=== PATIENT | male | born 1955 | race Caucasian/White ===

== ENCOUNTER 2023-03-03 10:32 | Emergency (ER) | payer MEDICARE, OTHER, SELFPAY ==
--- NOTE | ~2023-03-03 | XR_ITS ---
EXAMINATION: XR wrist RT min 3V DATE: 03/03/2023 10:56 INDICATION: Right wrist pain. Fall. TECHNIQUE: 4 views of right wrist were obtained. COMPARISON: None. FINDINGS: Bone alignment is normal. No fracture. There is mild osteoarthritis of triscaphe joint and first carpometacarpal joint. There is a punctate loose body in the radiocarpal compartment dorsally. IMPRESSION: 1. Mild polyarticular osteoarthritis. Reviewed, dictated and finalized at location A.
[2023-03-03 10:40] VITALS: BP 135/72; PULSE 76; RESP 20; TEMP 36.6; O2SAT 100
--- NOTE | 2023-03-03 11:02 | ED.UPPEXIN ---
HPI - Extremity Injury (Upper) General Chief Complaint: Extremity Injury, Upper Stated Complaint: Fall/Injury R Wrist Time Seen by Provider: 03/03/23 11:02 Source: patient and RN notes reviewed History of Present Illness HPI narrative: Patient is a 67-year-old male who presents to urgent care with complaints of right wrist injury. Patient states he fell down some stairs carrying a box and landing on his right wrist. Patient denies hitting his head or any other injuries from the incident. States that the accident occurred prior to arrival and he has not done anything for his pain. No other acute complaints. No acute distress noted. Patient aware of the plan of care. Some parts of this dictation were generated by voice recognition software and may contain typographical and/or grammatical inaccuracies. Related Data Home Medications Medication Instructions Recorded Confirmed amoxicillin 875 mg tablet 875 mg PO DIRECTED 03/03/23 03/03/23 aspirin 81 mg chewable tablet 81 mg PO DIRECTED 03/03/23 03/03/23 atorvastatin 40 mg tablet 40 mg PO DIRECTED 03/03/23 03/03/23 losartan 25 mg tablet 25 mg PO DIRECTED 03/03/23 03/03/23 Allergies Allergy/AdvReac Type Severity Reaction Status Date / Time No Known Allergies Allergy Verified 03/03/23 10:50 Review of Systems Review of Systems: CONSTITUTIONAL: Denies fever, chills, or sweats. EYES: Denies visual changes, redness, or discharge. ENT: Denies rhinorrhea, congestion, sore throat, or otalgia. CARDIOVASCULAR: Denies chest pain, palpitations, or edema. RESPIRATORY: Denies cough or dyspnea. GASTROINTESTINAL: Denies abdominal pain, nausea, vomiting, or diarrhea. GENITOURINARY: Denies dysuria or hematuria. SKIN: Denies rash or itching. MUSCULOSKELETAL: Reports of right wrist pain and discomfort after fall NEUROLOGIC: Denies headache, numbness, or weakness. All other systems reviewed are negative, except as documented in HPI. PMFSH Comments At the time of my signature, I reviewed and agree with the nursing past medical, surgical, social, and family history. There is no relevant family history pertinent to the patient complaint. Exam Narrative: GENERAL: This is a well-nourished, well-developed patient, in no apparent distress. HEAD: normocephalic, atraumatic. EYES: PERRL. Sclera clear/white. Vision is grossly intact. EARS: External ears normal, NOSE: External nose normal with no obvious nasal discharge, nares without redness, no rhinorrhea. THROAT: Mucous membranes moist NECK: Neck supple, SKIN: warm, intact with no suspicious lesions or rash, good texture and turgor. NEURO: awake, alert, and oriented to person, place and time. There were no obvious focal neurologic abnormalities. EXTREMITIES: Moderate edema/hematoma/ecchymosis noted to the radial aspect of the right wrist with mild tenderness. Full range of motion not tested due to pain. Difficulty on flexion and rotation. Positive strong right radial pulse with capillary refill less than 2 seconds. Course Course Level of Care: Express Care Visit Vital Signs Vital signs: Vital Signs Temperature 97.8 F 03/03/23 10:40 Pulse Rate 76 03/03/23 10:40 Respiratory Rate 20 03/03/23 10:40 Blood Pressure 135/72 03/03/23 10:40 Pulse Oximetry 100 03/03/23 10:40 Oxygen Delivery Room Air 03/03/23 10:40 Temperature 97.8 F 03/03/23 10:40 Pulse Rate 76 03/03/23 10:40 Respiratory Rate 20 03/03/23 10:40 Blood Pressure 135/72 03/03/23 10:40 Pulse Oximetry 100 03/03/23 10:40 Oxygen Delivery Room Air 03/03/23 10:40 Reviewed MDM - Extremity Injury (Upper) MDM Narrative Medical decision making narrative: Reviewed x-ray results with the patient. He is aware that x-ray was negative for fracture deformity. Advised patient to wear the Kvng wrap as needed for comfort and support. Use Tylenol/ibuprofen/ice as needed for pain or discomfort. Avoid any strenuous activity involving pushing/
== END 2023-03-03 11:14 | disposition home or self-care (01) ==
PROVIDERS: Emergency Provider Nurse Practitioner Family; PCP Internal Medicine
DX: S63.501A Unspecified sprain of right wrist, initial encounter (principal); S66.911A Strain of unspecified muscle, fascia and tendon at wrist and hand level, right hand, initial encounter; W10.9XXA Fall (on) (from) unspecified stairs and steps, initial encounter; E78.00 Pure hypercholesterolemia, unspecified; I10 Essential (primary) hypertension; Z85.828 Personal history of other malignant neoplasm of skin
CPT/HCPCS: 73110; 99213; G0463

== ENCOUNTER 2023-10-17 15:00 | Emergency (ER) | payer MEDICARE, OTHER, SELFPAY ==
--- NOTE | ~2023-10-17 | XR_ITS ---
XR ankle RT min 3V 10/17/2023 15:29 INDICATION: Right ankle pain PROCEDURE: 4 views right ankle COMPARISON: No prior studies for comparison. FINDINGS: Fracture, dislocation or subluxation is not identified. There are loose bodies at the media l malleolus. The soft tissues appear within normal limits. No foreign bodies are identified. There i s atherosclerosis. IMPRESSION: 1: NO ACUTE BONE OR JOINT ABNORMALITY IDENTIFIED. Reviewed, dictated and finalized at location B. [facility]
[2023-10-17 15:12] VITALS: BP 152/85; PULSE 74; RESP 20; TEMP 36.9; O2SAT 99
--- NOTE | 2023-10-17 15:18 | ED.LOWEXIN ---
HPI - Extremity Injury (Lower) General Chief Complaint: Extremity Injury, Lower Stated Complaint: Right Foot Injury Time Seen by Provider: 10/17/23 15:32 Source: patient and RN notes reviewed Mode of arrival: ambulatory Limitations: no limitations History of Present Illness HPI Narrative: 68-year-old male presents concern for right ankle pain. He reports he passed out today and then had right ankle pain. He reports pain to the medial and lateral ankle. He reports he can find a comfortable position without pain but when he rotated his ankle or puts weight on it is painful. He or reports he has a history of passing out, doctors have not been Lyla to figure out why. He denies any chest pain, shortness of breath, headache. Related Data Allergies Allergy/AdvReac Type Severity Reaction Status Date / Time No Known Allergies Allergy Verified 03/03/23 10:50 Review of Systems Review of Systems: CONSTITUTIONAL: Denies malaise, chills, sweats, or fever. SKIN: Denies rash or itching, open skin, laceration, abrasion, redness, warmth MUSCULOSKELETAL: Reports right ankle pain NEUROLOGIC: Denies numbness, weakness All systems reviewed & are unremarkable except as noted in HPI and below PMFSH Comments At time of signature, agree with nursing past medical, surgical, social and family history. There is no relevant family history pertinent to the presenting complaint Exam Narrative: GENERAL: Well-appearing, well-nourished, and in no acute distress. HEAD: Normocephalic, atraumatic. EYES: PERRLA, conjunctivae clear NECK: Supple. CHEST: Speaks in full sentences. No respiratory distress. HEART: Regular rate and rhythm. Normal and equal peripheral pulses. EXTREMITIES: Right ankle, foot, digits have grossly normal strength and sensation, gross normal range of motion. No edema or ecchymosis. Normal sensation with sensitivity to light touch and pain. No point tenderness. No open wounds, no skin tenting, no devitalized tissue or atrophy, no trophic changes, no obvious deformity, alignment normal, nearby joints and structures intact. Distal pulses palpable and equal bilaterally, skin warm, dry, pink. Capillary refill less than 3 seconds. SKIN: Warm, dry, no rash. NEURO: Alert and oriented x3. PSYCH: Normal mood and affect Course Course Emergency Course: Patient is aware of diagnosis, understands and agrees to treatment plan. Anticipatory guidance given. Patient agrees to follow-up as directed and is aware of reasons to seek care at the emergency department. Portions of this record may have been created with voice recognition software Level of Care: Express Care Visit Vital Signs Vital signs: Vital Signs Temperature 98.4 F 10/17/23 15:12 Pulse Rate 74 10/17/23 15:12 Respiratory Rate 20 10/17/23 15:12 Blood Pressure 152/85 H 10/17/23 15:12 Pulse Oximetry 99 10/17/23 15:12 Oxygen Delivery Room Air 10/17/23 15:12 Temperature 98.4 F 10/17/23 15:12 Pulse Rate 74 10/17/23 15:12 Respiratory Rate 20 10/17/23 15:12 Blood Pressure 152/85 H 10/17/23 15:12 Pulse Oximetry 99 10/17/23 15:12 Oxygen Delivery Room Air 10/17/23 15:12 Reviewed. MDM - Extremity Injury (Lower) MDM Narrative Medical decision making narrative: Patients injury and pain is consistent with musculoskeletal etiology. No signs of neurological or vascular compromise on exam. Compartments and tissues are soft without signs of compartment syndrome. Pain is felt appropriate for further evaluation on an outpatient basis. Imaging Data My impression: Images reviewed, interpreted by radiologist, agree, see report. Radiologist's impression: XR ankle RT min 3V 10/17/2023 15:29 INDICATION: Right ankle pain PROCEDURE: 4 views right ankle COMPARISON: No prior studies for comparison. FINDINGS: Fracture, dislocation or subluxation is not identified. There are loose bodies at the medial malleolus. The soft tissues appear within no
== END 2023-10-17 15:54 | disposition home or self-care (01) ==
PROVIDERS: Emergency Provider Nurse Practitioner; PCP Internal Medicine
DX: S93.401A Sprain of unspecified ligament of right ankle, initial encounter (principal); S96.911A Strain of unspecified muscle and tendon at ankle and foot level, right foot, initial encounter; X58.XXXA Exposure to other specified factors, initial encounter
CPT/HCPCS: 73610; 99213; G0463

== ENCOUNTER 2025-06-18 08:13 | Emergency (ER) | payer MEDICARE, OTHER, SELFPAY ==
--- NOTE | 2025-06-18 08:15 | ED.GENADULT ---
HPI - General Adult General Chief complaint: Dizziness Stated complaint: vertigo/headache/nausea Time Seen by Provider: 06/18/25 08:22 Source: patient, RN notes reviewed and old records reviewed Mode of arrival: ambulatory Limitations: no limitations History of Present Illness HPI narrative: 69-year-old male with a history of hypertension, high cholesterol, pacemaker presents to the [facility] with complaints of dizziness, headache, nausea without vomiting since Tuesday well weedeating. States he has been drainage drink water but has been vomiting. Denies chest pain, shortness of breath. No numbness or tingling in extremities. Only thing that makes it better is when he lays flat Onset (ago): day(s) (2) Treatments prior to arrival: none Related Data Allergies Allergy/AdvReac Type Severity Reaction Status Date / Time No Known Allergies Allergy Verified 03/03/23 10:50 Review of Systems Review of Systems: All systems reviewed & are unremarkable except as noted in HPI and below Constitutional: Constitutional: Reports as per HPI and Reports headache(s) ENT: Reports system reviewed and no additional complaints, except as documented Cardiovascular: Cardiovascular: Reports no additional cardiovascular complaints, Denies chest pain and Denies dyspnea Respiratory: Respiratory: Reports no additional respiratory complaints, Denies chest congestion, Denies cough and Denies dyspnea Gastrointestinal: Gastrointestinal: Reports as per HPI, Reports nausea and Denies vomiting Musculoskeletal: Musculoskeletal: Reports no additional musculoskeletal complaints Integumentary/Breasts: Skin/Breast: Reports system reviewed and no additional complaints, except as docu Neurologic: Reports as per HPI, Reports dizziness and Reports headache(s) PMFSH Past Medical History Medical History (Updated 06/18/25 @ 08:43 by Kathie Romero APRN) History of high cholesterol History of essential hypertension Pacemaker Comments At the time of my signature, I reviewed and agree with the nursing past medical, surgical, social, and family history. There is no relevant family history pertinent to the patient complaint. Exam Const: General: cooperative, no acute distress, well developed, alert, poor hygiene, uncomfortable and well nourished Nutritional Appearance: well nourished Orientation/consciousness: patient oriented x3 Limitations: no limitations HENMT: Head: normal to inspection Ears: hearing grossly normal bilaterally, external ears normal, TM's normal bilaterally, EAC's normal, mastoids normal and no periauricular adenopathy Mouth: Yes Normal oral and palatal mucosa present, Yes lip normal, Yes tongue normal and Yes moist mucous membranes Throat: posterior oropharynx normal, uvula midline and no uvular edema Eyes: General: appearance normal, both eyes and all related structures Alignment and Position: alignment normal Periorbital: periorbital findings normal Eyelids: eyelids normal Neck: Neck: normal visual inspection, full ROM, no lymphadenopathy and no meningeal signs Chest: Chest palpation & inspection: normal inspection of the chest Resp: Effort & Inspection: normal respiratory effort and able to speak in complete sentences Auscultation: clear to auscultation bilaterally, no crackles, no rales, no rhonchi and no wheezes Cardio: Rate: regular rate GI: GI Palp: No abdominal tenderness Skin: General skin exam: normal color and no rashes or lesions noted Neuro: General: patient oriented x3, No gait normal (needs to hold on to something to walk), moves all extremities, no meningeal signs and no focal motor deficits Cognition (Neuro): normal cognition Speech: normal speech Gait exam (Neuro): gait abnormal and Other gait observations present (used wheelchair) Extrem: General: normal to inspection, full ROM and capillary refill normal Psych: Appearance: grossly normal and well kempt Mental Status: mental status grossly normal Speech and movement: Normal speech and movement present and Clear speech present Affect: normal affect Attitude: cooperative Course Course Level of Care: Express Care Visit Vital Signs Vital signs: Vital Signs Temperature 97.6 F 06/18/25 08:23 Pulse Rate 63 06/18/25 08:23 Respiratory Rate 18 06/18/25 08:23 Blood Pressure 159/92 H 06/18/25 08:23 Pulse Oximetry 99 06/18/25 08:23 Oxygen Delivery Room Air 06/18/25 08:23 Temperature 97.6 F 06/18/25 08:23 Pulse Rate 63 06/18/25 08:23 Respiratory Rate 18 06/18/25 08:23 Blood Pressure 159/92 H 06/18/25 08:23 Pulse Oximetry 99 06/18/25 08:23 Oxygen Delivery Room Air 06/18/25 08:23 Reviewed Transfer Transfered to: [facility] Transportation: Other (Declined EMS, having his friend drive him) Transfer rationale: 69-year-old male with a history of a pacemaker, high blood pressure, high cholesterol with a day and half of dizziness, nausea, headache sending for higher level of care Accepting physician: Dr Sousa, spoke with tobacco primer machine operator Medical Decision Making MDM Narrative Medical decision making narrative: Patient appears uncomfortable in exam room. Patient is nontoxic, blood pressure mildly elevated but otherwise vitals are stable. Patient presents with a day and half of dizziness, nausea, headache. Due to patient's past medical history age and signs and symptoms sending for higher level of care, concern for dehydration versus stroke, bleed Transfer instructions reviewed with patient to go directly to the ER. EMS was offered which patient declined. All questions have been answered, and the patient deny any further questions Some parts of this dictation were generated by voice recognition software and may contain typographical and/or grammatical inaccuracies. Differential Diagnosis Differential Diagnosis: Dehydration, heat injury, stroke, brain bleed, migraine, vertigo Medical Records Medical records reviewed: Yes I reviewed the external patient's medical records. Vital Signs Vital Signs: Vital Signs Temperature 97.6 F 06/18/25 08:23 Pulse Rate 63 06/18/25 08:23 Respiratory Rate 18 06/18/25 08:23 Blood Pressure 159/92 H 06/18/25 08:23 Pulse Oximetry 99 06/18/25 08:23 Oxygen Delivery Room Air 06/18/25 08:23 Temperature 97.6 F 06/18/25 08:23 Pulse Rate 63 06/18/25 08:23 Respiratory Rate 18 06/18/25 08:23 Blood Pressure 159/92 H 06/18/25 08:23 Pulse Oximetry 99 06/18/25 08:23 Oxygen Delivery Room Air 06/18/25 08:23 Reviewed Lab Data Lab results reviewed: Yes I reviewed the patient's lab results. Labs: Reviewed ECG Data EKG #1: Attestation: I personally reviewed and interpreted this ECG as follows: ECG completion date: 06/18/25 ECG completion time: 08:30 Prior ECG tracings: not available for review Interpretation: Sinus rhythm, ventricular rate of 61, NM interval 134, QRS duration 87. No ST elevation or depression noted at this time Critical Care Time Critical Care Time Critical Care Time: No Discharge Plan Discharge Clinical Impression: Dizziness, Headache, Nausea Patient Disposition: Acute Care Hospital Condition: Stable Patient Language: Welsh Follow-up/Referrals: Jerman,Agustín Day MD [Primary Care Provider] -
--- OUTSIDE RECORDS SUMMARY | 2025-06-18 08:15 | XMS_ITS | Encounter Summary ---
Author Organization [facility] Address [address] [facility] [place] [address] Care Team Providers Care Associate Director Of Sales Name Role Phone Cornell Stoll MD Primary Care Provider [phone] [phone] Encounter Details Date Type Department Care Team (Late st Contact Info) Description 09/10/2020 Lab Requisition [facility] [address] [facility], [place] [address] Say Shannon MD [address] [place] [address] Social History Tobacco Use Types Packs/Day Years Used Date Smoking Tobacco: Never Smokeless Tobacco: Never Alcohol Use Standard Drinks/Week Comments No 0 (1 standard drink = 0.6 oz pur e alcohol) Sex and Gender Information Value Date Recorded Sex Assigned at Not on file 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 Answer Date of Assessment Author No 10/30/2018 3:09 PM Elzbieta Singh RN * Is person blind or have serious difficulty seeing? Answer Date of Assessment Author No 10/30/2018 3:09 PM Elzbieta Singh RN * Does person have serious difficulty walking/climbing stairs? Answer Date of Assessment Author No 10/30/2018 3:09 PM Elzbieta Singh RN * Does person have difficulty dressing/bathing? Answer Date of Assessment Author No 10/30/2018 3:09 PM Elzbieta Singh RN * Does person have difficulty doing errands alone? Answer Date of Assessment Author Yes 10/30/2018 3:09 PM Elzbieta Singh RN documented as of this encounter Mental Status * Does person have difficulty concentrating/remembering/making decisions? Answer Entry Date Author No 10/30/2018 3:09 PM Elzbieta Singh RN documented in this encounter Plan of Treatment Not on file documented as of this encounter Procedures Procedure Name Priority Date/Time Associated Diagnosis Comments DERMATOPATHOLOGY Routine 09/09/2020 12:0 0 AM CDT documented in this encounter Results * DERMATOPATHOLOGY (09/09/2020 12:00 AM CDT) Case Report Dermatopathology Report Case: [id number] Authorizing Provider: Say Shannon MD Collected: 09/09/2020 12:00 AM Ordering Location: [facility] Received: 09/10/2020 11:25 AM Pathologist: Elizabeth Kim MD Specimen: Skin, right tricep 0 1:48 PM CDT DERMATOPATHOLOGY LABORATORY Final Diagnosis Specimen A. 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 0 1:48 PM CDT DERMATOPATHOLOGY LABORATORY Gross Description Specimen A: Received is one formalin filled container labeled with the patients name and designated right tricep. The specimen consists of a shave removal measuring [id number]. The margin is inked green. Jar 0. 0 1:48 PM CDT DERMATOPATHOLOGY LABORATORY Microscopic Description Specimen A. SKIN, right tricep: The epidermis is acanthotic and shows full thickness disorderly maturation of keratinocytes, mitoses at different levels, and dyskeratotic cells. There is overlying parakeratosis and hyperkeratosis. This lesion is not present at the sampled margin of the specimen. 0 1:48 PM CDT DERMATOPATHOLOGY LABORATORY Disclaimer An external and internal positive and negative controls are appropriate for the histochemical, immunohistochemical and immunofluorescence stain(s) in this case (if any), except where stated explicitly. The performance characteristics of the stain(s) cited in this report were developed and its performance characteristic determined by the Dermatopathology Laboratory at [facility], directed by Dr. Vin Terrazas. These tests need not be, and therefore are not, approved by the [place] Food and Drug Administration. The tests are used for clinical purposes. Billing Codes Specimen Charges Stain Charges 69598 1 0 1:48 PM CDT DERMATOPATHOLOGY LABORATORY Embedded Images 0 1:48 PM CDT DERMATOPATHOLOGY LABORATORY Pathology/Cytolog y TISSUE SPECIMEN FROM SKIN / Unknown 09/09/2020 09/10/2020 11:25 AM CDT Say Shannon MD LAB - PATHOLOGY/CYTOLOGY ORD ERABLES Final Result DERMATOPATHOLOGY LABORATORY [facility] - Department of Dermatology [facility] Specialized Medicine [address] [place] [address], [address] [phone] documented in this encounter Visit Diagnoses Not on filedocumented in this encounter Care Teams Associate Director Of Sales Relationship Specialty Start Date End Date Cornell Stoll MD [address] [place] [address] PCP - General Internal Medicine 01/09/24 documented as of this encounter
--- OUTSIDE RECORDS SUMMARY | 2025-06-18 08:15 | XMS_ITS | Encounter Summary ---
Author Organization [facility] Address [address] [facility] [place] [address] Care Team Providers Care Corrections Counselor Name Role Phone Cornell Stoll MD Primary Care Provider [phone] [phone] Encounter Details Date Type Department Care Team (Late st Contact Info) Description 08/05/2021 Lab Requisition [facility] [address] 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 SKIN, distal ext Lt FA: SQUAMOUS CELL CARCINOMA, KERATOACANTHOMA TYPE (C44.629) NOT PRESENT AT SAMPLED MARGIN 1 2:02 PM CDT DERMATOPATHOLOGY LABORATORY at 1402 CDT Clinical History R/O SCC, fiore's. Check margins. 1 2:02 PM CDT DERMATOPATHOLOGY LABORATORY Gross Description Specimen A: Received is one formalin filled container labeled with the patients name and designated distal ext Lt FA. The specimen consists of a shave removal measuring [id number]. Jar 0. 1 2:02 PM CDT DERMATOPATHOLOGY LABORATORY Microscopic Description Specimen A. SKIN, distal ext Lt FA: Sections show an endo exophytic crateriform lesion with a keratotic plug, formed by confluent follicle-like structures with relatively large keratinocytes. This lesion is not present at the sampled margin of the specimen. 1 2:02 PM CDT DERMATOPATHOLOGY LABORATORY Disclaimer An external and internal positive and negative controls are appropriate for the histochemical, immunohistochemical and immunofluorescence stain(s) in this case (if any), except where stated explicitly. The performance characteristics of the stain(s) cited in this report were developed and its performance characteristic determined by the Dermatopathology Laboratory at [facility], directed by Dr. Vin Terrazas. These tests need not be, and therefore are not, approved by the [place] Food and Drug Administration. The tests are used for clinical purposes. Billing Codes Specimen Charges Stain Charges 43444 1 1 2:02 PM CDT DERMATOPATHOLOGY LABORATORY Embedded Images 1 2:02 PM CDT DERMATOPATHOLOGY LABORATORY Pathology/Cytolog y TISSUE SPECIMEN FROM SKIN / Unknown 08/04/2021 08/05/2021 12:52 PM CDT Say Shannon MD LAB - PATHOLOGY/CYTOLOGY ORD ERABLES Final Result DERMATOPATHOLOGY LABORATORY [facility] - Department of Dermatology [facility] Specialized Medicine [address] [place] [address], [address] [phone] documented in this encounter Visit Diagnoses Not on filedocumented in this encounter Care Teams Corrections Counselor Relationship Specialty Start Date End Date Cornell Stoll MD [address] [place] [address] PCP - General Internal Medicine 01/09/24 documented as of this encounter
--- OUTSIDE RECORDS SUMMARY | 2025-06-18 08:15 | XMS_ITS | Encounter Summary ---
Author Organization [facility] Address [address] [facility] [place] [address] Care Team Providers Care Installer Technician Name Role Phone Cornell Stoll MD Primary Care Provider [phone] [phone] Encounter Details Date Type Department Care Team (Late st Contact Info) Description 02/25/2022 Lab Requisition [facility] [address] [facility] [place] [id number] Say Shannon MD [address] [place] [address] Social History Tobacco Use Types Packs/Day Years Used Date Smoking Tobacco: Never Smokeless Tobacco: Never Alcohol Use Standard Drinks/Week Comments No 0 (1 standard drink = 0.6 oz pur e alcohol) Sex and Gender Information Value Date Recorded Sex Assigned at Not on file 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 Gender Identity Not on file Sexual Orientation [...] Priority Date/Time Associated Diagnosis Comments DERMATOPATHOLOGY Routine 02/24/2022 12:0 0 AM CDT documented in this encounter Results * DERMATOPATHOLOGY (02/24/2022 12:00 AM CDT) Case Report Dermatopathology Report Case: [id number] Authorizing Provider: Say Shannon MD Collected: 02/24/2022 12:00 AM Ordering Location: [facility] Received: 02/25/2022 01:45 PM Pathologist: Elizabeth Kim MD Specimen: Skin, left dorsal hand proximal edge of middle finger mcp joint 12:55 PM CDT DERMATOPATHOLOGY LABORATORY Final Diagnosis Specimen A. 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 The specimen consists of a shave biopsy measuring [id number]. Jar 0. 12:55 PM CDT DERMATOPATHOLOGY LABORATORY Microscopic Description Specimen A. SKIN, left dorsal hand proximal edge of middle finger mcp joint: Sections show an endophytic crateriform lesion with a keratotic plug, formed by confluent follicle-like structures with relatively large keratinocytes. In addition, there is a separate focus with hyperkeratosis alternating with parakeratosis. There is epidermal hyperplasia with disorderly maturation of keratinocytes with nuclear pleomorphism confined to the lower half of the epidermis. This process extends to the base of the specimen as follicular extension. There are fibroblasts and collagen bundles oriented parallel to the skin surface with elongated blood vessels, some of which are oriented perpendicular to the skin surface. These scar-like changes extend to the base of the specimen. COMMENT: The prior biopsy ([id number]) was reviewed. An underlying process cannot be ruled out. 2 12:55 PM CDT DERMATOPATHOLOGY LABORATORY Disclaimer An external and internal positive and negative controls are appropriate for the histochemical, immunohistochemical and immunofluorescence stain(s) in this case (if any), except where stated explicitly. The performance characteristics of the stain(s) cited in this report were developed and its performance characteristic determined by the Dermatopathology Laboratory at [facility], directed by Dr. Vin Terrazas. These tests need not be, and therefore are not, approved by the [place] Food and Drug Administration. The tests are used for clinical purposes. Billing Codes Specimen Charges Stain Charges 78759 1 2 12:55 PM CDT DERMATOPATHOLOGY LABORATORY Embedded Images 2 12:55 PM CDT DERMATOPATHOLOGY LABORATORY Pathology/Cytolog y TISSUE SPECIMEN FROM SKIN / Unknown 02/24/2022 02/25/2022 1:45 PM CDT Say Shannon MD LAB - PATHOLOGY/CYTOLOGY ORD ERABLES Final Result DERMATOPATHOLOGY LABORATORY [facility] - Department of Dermatology [facility] Medicine [address] [place] [address], [address] [place] [address], [facility] [phone] documented in this encounter Visit Diagnoses Not on filedocumented in this encounter Care Teams Installer Technician Relationship Specialty Start Date End Date Cornell Stoll MD [address] [place] [address] PCP - General Internal Medicine 01/09/24 documented as of this encounter
--- OUTSIDE RECORDS SUMMARY | 2025-06-18 08:15 | XMS_ITS | Clinical Summary ---
Author Organization [facility] Address [address] [place] [address] Care Team Providers Care Coke Oven Patcher Name Role Phone Cornell Stoll MD Primary Care Provider + Cornell Francis MD Unavailable [phone] Allergies No known active allergies Medications aspirin 81 mg chewable tablet Take 1 tablet (81 mg total) by mouth every morning Active ezetimibe (ZETIA) 10 mg tablet Take 1 tablet (10 mg total) by mouth every morning 4 Active ergocalciferol (VITAMIN D) 50,000 unit capsule Take 1 capsule (50,000 Units total) by mouth once a week 4 Active rosuvastatin (CRESTOR) 20 mg tablet Take 1 tablet (20 mg total) by mouth every morning Active cyanocobalamin (Vitamin B-12) 1,000 mcg tabletIndicatio ns:Prevention of Vitamin B12 Deficiency Take 1 tablet (1,000 mcg total) by mouth every morning Active sulfamethoxazol e-trimethoprim (BACTRIM DS) 800-160 mg per tablet Take 1 tablet (160 mg of trimethoprim total) by mouth 2 (two) times a day 14 tablet 5 Active docusate sodium (COLACE) 100 mg capsuleIndicati ons:constipatio n Take 1 capsule (100 mg total) by mouth 2 (two) times a day as needed for constipation 30 capsule 5 Active HYDROcodone-brenda taminophen (NORCO) 5-325 mg per tabletIndicatio ns:Pain Take 1 tablet by mouth every 6 (six) hours as needed for pain 15 tablet 5 Active Active Problems Problem Noted Date Diagnosed Date Malignant neoplasm of prostate 03/05/2025 Abnormal computed tomography of bladder 05/09/20 24 Syncope and collapse 12/05/2023 Encounter for screening colonoscopy 08/16/2023 Lesion of bladder 04/22/2020 Overview (04/22/2020): Added automatically from request for surgery [id number] Enlarged prostate 04/21/2020 Overview (04/21/2020): Added automatically from request for surgery [id number] Elevated PSA 04/21/2020 Overview (04/21/2020): Added automatically from request for surgery [id number] Healthcare maintenance 08/18/2017 Medication management 08/18/2017 Attention deficit disorder (ADD) without hyperac tivity 12/16/2015 Overview (02/25/2017): ADD Hyperlipidemia 12/16/2015 Overview (02/25/2017): Hyperlipidemia Hypogonadism in male 04/06/2014 Overview (02/24/2017): Hypogonadism male Vitamin D deficiency 08/16/2012 Overview (02/24/2017): Vitamin D deficiency Encounters Date Type Department Care Team Description 04/03/2025 8:06 AM CDT Anesthesia Event [facility] [address] [place] [phone] Jun Sprague MD Jarvis, Gary Joseph, CRNA 04/03/2025 7:30 AM CDT - 04/03/2025 12:00 PM CDT Surgery [facility] [address] [place] [phone] Cornell Francis MD Robotic Assisted Radical Prostatectomy, Bilateral Pelvic Lymph Node Dissection, Laparoscopic Urethral Suspension 04/03/2025 5:26 AM CDT - 04/04/2025 3:07 PM CDT Hospital Encounter [address] [place] [address] Cornell Francis MD Malignant neoplasm of prostate (HCC) Discharge Disposition: Discharge to home or self care from Last 3 Months Immunizations Immunization Administration Dates Next Due Influenza, Quadrivalent, Leonor l Culture-based MDCK, Preservative Free, Antibiotic Free, Intramuscular 10/06/2017 Influenza, Quadrivalent, Spl it, Preservative Free, Intradermal 08/17/2016,12/16/2015 Influenza, Split 08/16/2012,08/10/2011, 0 Influenza, Trivalent, Recomb inant, Egg Free, Preservative Free, Antibiotic Free, IM (FLUBLOK) 12/13/2014 Tdap 06/28/2006 Surgical History Surgery Date Site/Laterality Comments CHOLECYSTECTOMY OTHER SURGICAL HISTORY 11/21/2012 - 11/20/2013 fainted at work: [facility] ER Visit03/09/13 VASECTOMY 11/21/1986 - 11/20/1987 BACK SURGERY 02/19/2018 - 03/20/2018 w/ instrumentation for fracture after falling 20ft COLONOSCOPY 07/22/2013 - 08/20/2013 CARDIAC PACEMAKER PLACEMENT 08/27/2024 Medical History Medical History Date Comments Hx Other Medical goiter Hx Other Medical primary hypogon adism Attention deficit disorder ADHD Hx Other Medical diplopia Hx Other Medical 08/[address] Hx Other Medical Squamous Cell C ancer Hx Other Medical Basal Cell canc er Hyperlipidemia Malignant neoplasm of skin 2012 Cance r, skin Fainted 02/27/2013 Hard to intubate 10/28/2018 anterior larynx , small mouth opening, narraow palatte, jagged teeth, overbite KETURAH (obstructive sleep apnea) Depression HLD (hyperlipidemia) Sick sinus syndrome (HCC) Family History Medical History Relation Name Comments Other Brother 2 Alive and well; Coronary artery disease Father Jamie nary artery disease; Hypertension Father Hypertension; Parkinsonism Mother Parkinson's dis ease; Parkinsonism Mother's Brother Parkinson's disease; Parkinsonism Mother's Sister Parkinson's disease; Other Other 1 No family histo ry of Cancer; Other Other 2 No family histo ry of Diabetes mellitus; Other Sister 2 Alive and well; Anesthesia problems Neg Hx Bleeding Disorder Neg Hx Clotting disorder Neg Hx Heart attack Neg Hx Stroke Neg Hx Sudden Cardiac Neg Hx Relation Name Status Comments Brother 1 Alive Brother 2 Father Mother Mother's Brother Mother's Sister Other 1 Other 2 Sister 1 Alive Sister 2 Social History Tobacco Use Types Packs/Day Years Used Date Smoking Tobacco: Never Smokeless Tobacco: Never Tobacco Cessation:Counseling Given: Not Answered Alcohol Use Standard Drinks/Week Comments No 0 (1 standard drink = 0.6 oz pur e alcohol) AUDIT-C Answer Date Recorded Q1: How often do you have a drink containing alcohol? Never 04/03/2025 Q2: How many drinks containi ng alcohol do you have on a typical day when you are drinking? Patient does not drink Q3: How often do you have si x or more drinks on one occasion? Never 04/03/2025 Personal Safety Answer Date Recorded Have you ever been in or are you currently in a harmful physical or emotional relationship or is someone making you feel afraid or unsafe? Denies 04/03/2025 Sex and Gender Information Value Date Recorded Sex Assigned at Not on file Legal Sex Male 4:34 PM MACHINE SET UP Gender Identity Male 10/31/2020 11:25 AM MACHINE SET UP Sexual Orientation Straight 04/18/2020 2: 27 PM CDT Obstetrics History Last Filed Vital Signs Vital Sign Reading Time Taken Comments Blood Pressure 116/89 04/04/2025 12:03 PM CDT Pulse 70 04/04/2025 12:03 PM CDT Temperature 36.9 C (98.4 F) 04/03/2025 8:11 PM CDT Respiratory Rate 18 04/04/2025 12:0 3 PM CDT Oxygen Saturation 100% 04/04/2025 12: 03 PM CDT Inhaled Oxygen Concentration - - Weight 74.3 kg (163 lb 12.8 oz) 04/03/2025 6:25 AM CDT Height 175.3 cm (5' 9) 04/03/2025 6:25 AM CDT Body Mass Index 24.19 04/03/2025 6:25 AM CDT Plan of Treatment Health Maintenance Due Date Last Done Comments Hepatitis B Screening 1971 Pneumococcal vaccine 65+ (1 of 1 - PCV) 2003 Zoster Vaccine (1 of 2) 2003 Osteoporosis Screening-Bone Density Scan 2011 2009 DTaP/Tdap/Td Vaccine (2 - Td or Tdap) 06/28/2016 06/28/2006 Well Visit 65+ 2018 Depression Screening 08/18/2018 08/18/2017 Influenza Vaccine (#1) 2025 , 10/28/2018, 10/06/2017, Additional history exists Prostate Cancer Screening-PSA 10/03/2025, 01/24/2023, 01/24/2023, Additional history exists Fall Risk Assessment 04/04/2026 04/04/2025, 05/09/20 Colon Cancer Screening-Colonoscopy 11/03/2033 11/03/2023, 07/31/2013, 07/31/2013 Hepatitis C Screening Completed 02/02/2017 Abdominal Aortic Aneurysm (A AA) Screen Completed 10/27/2018 Colon Cancer Screening-CT Colonography Discontinued 11/03/2023, 07/31/2013, 07/31/2013 Colon Cancer Screening-DNA Stool Discontinued 11/03/2023, 07/31/2013, 07/31/2013 Colon Cancer Screening-FIT Discontinued 11/03, 07/31/2013, 07/31/2013 Colon Cancer Screening-Sigmoidoscopy Discontinued 11/03/2023, 07/31/2013, 07/31/2013 Medical Devices Implanted Type Area Civil Rights Investigator Device Identifier Shelf Expiration Date Model / Serial / Lot Biotronik Lead Lead Heart Biotronik [id number] / / Biotronik Lead Lead Heart Biotronik [id number] / / Biotronik Edora 8-08/27/2024 Implanted:100 05/2024 (Quantity not on file) Pacemaker Left: Chest [id number] / / L1-L3 Fusion N/A: Spine Lumbar Explanted Type Area Civil Rights Investigator Device Identifier Shelf Expiration Date Model / Serial / Lot Implantable Loop Recorder-2021 Implanted:04/22 by Jesus Lau MD (Quantity not on file) Implantable Loop Recorder N/A: Chest Biotronik BIOMONITOR IIIM / [id number] / Procedures Procedure Name Priority Date/Time Associated Diagnosis Comments EGFR Routine 04/04/2025 1:14 AM CDT HEMOGLOBIN AND HEMATOCRIT Routine 04/04/2025 1:14 AM CDT BASIC METABOLIC PANEL Routine 04/04/2025 1:14 AM CDT SURGICAL PATHOLOGY Routine 04/03/2025 11 :23 AM CDT Malignant neoplasm of prostate (HCC) CO AN PROCEDURE PLACEHOLDER Routine 04/03/2025 8:45 AM CDT CO AN ELECTIVE ENDOTRACHEAL AIRWAY Routine 04/03/2025 8:45 AM CDT XI PROSTATECTOMY - LAPAROSCOPIC ROBOTIC ASSISTED 04/03/2025 8:06 AM CDT Malignant neoplasm of prostate (HCC) B CHECK SAMPLE STAT 04/03/2025 6:18 AM CDT PSA SCREEN Routine 10/03/2024 9:23 AM MACHINE SET UP COLONOSCOPY 11/03/2023 7:54 AM MACHINE SET UP HEPATITIS C SCREENING Routine 02/02/2017 DEXA SCAN Routine 2009 from Last 3 Months or Most Recently Relevant to Health Maintenance Results * eGFR (04/04/2025 1:14 AM CDT) eGFR 80 >=60 mL/min/1. 73 m2 Comment: Interpretive Data Reference Interval Normal >/= 90 mL/min/1.73m2 Mildly decreased* 60 - 89 mL/min/1.73m2 Mildly to moderately decreased 45 - 59 mL/min/1.73m2 Moderately to severely decreased 30 - 44 mL/min/1.73m2 Severely decreased 15 - 29 mL/min/1.73m2 Kidney Failure < 15 mL/min/1.73m2 *Relative to young adult level Estimated glomerular filtration rate is determined by the 2020 CKD-EPI equation recommended by the National Kidney Foundation (A Unifying Approach to GFR Estimation: Recommendations of the NKF-ASK Task Force on Reassessing the Inclusion of Race in Diagnosing Kidney Disease, JASN 2020). The CKD-EPI equation should not be used for patients with unstable renal function and has not been validated in children and those over 70. Current interpretive data was last reviewed 2021. Blood 04/04/2025 1:14 AM CDT 04/04/2025 1:36 AM CDT Cornell Francis MD LAB BLOOD ORDERABLES Fin al Result Performing Organization Address City/[facility]/ZIP Co de Phone Number [facility] [address] [facility] [place] [address] * Hemoglobin and hematocrit (04/04/2025 1:14 AM CDT) Hgb 13.5 13.0 - 17.5 g/dL Hct 39.4 38.9 - 50.3 % [facility] Blood 04/04/2025 1:14 AM CDT 04/04/2025 1:36 AM CDT Cornell Francis MD LAB BLOOD ORDERABLES Fin al Result Performing Organization Address City/[facility] Co de Phone Number [facility] [address] [facility] [place] [address] * (ABNORMAL) Basic metabolic panel (04/04/2025 1:14 AM CDT) Sodium 138 135 - 145 mmol/L Potassium, pl 4.4 3.3 - 4.9 mmol/L [facility] Chloride 106 97 - 110 mmol/L [facility] CO2 21(L) 22 - 32 mmol/L [facility] Anion gap 11 2 - 15 mmol/L [facility] BUN 14 6 - 25 mg/dL [facility] Creatinine 1.01 0.80 - 1.30 mg/dL [facility] Glucose 160 70 - 199 mg/dL [facility] Comment: Interpretive Data Fasting glucose >/= 126 mg/dl is diagnostic for diabetes. Fasting is defined as no caloric intake for at least 8 hours. Fasting glucose between 100 mg/dl to 125 mg/dl is diagnostic of prediabetes. In a patient with classic symptoms of hyperglycemia or hyperglycemic crisis, a random glucose >/= 200 mg/dl is diagnostic for diabetes. In the absence of unequivocal hyperglycemia, results should be confirmed by repeat testing. The classification and Diagnosis of Diabetes Diabetes Care 2021; 46: S19-S40. Current interpretive data was last revised 2022. Calcium 8.1(L) 8.5 - 10.3 mg/dL [facility] Blood 04/04/2025 1:14 AM CDT 04/04/2025 1:36 AM CDT us Cornell Francis MD LAB BLOOD ORDERABLES Fin al Result [facility] [address] Department [place] [address] * Surgical pathology (04/03/2025 11:23 AM CDT) Tissue (Lymph node, dissection/region al resection) 04/03/2025 11:23 AM CDT Comment:Placed in formalin i n lab following procedure Tissue specimen (specimen) (Lymph node, dissection/region al resection) 04/03/2025 11:32 AM CDT Comment:Placed in formalin i n lab following procedure Tissue specimen (specimen) (Prostate, Radical Resection) 04/03/2025 11:53 AM CDT Comment:Placed in formalin i n lab following procedure Narrative [facility] - 04/08/2025 10:10 AM CDT [place] [address] [place], [place] [address] Tele: Camryn Sutherland MD - Commercial Airline Pilot Note to Patients: This report may contain a detailed description of human tissue sent by a health care provider to the laboratory for pathologic evaluation. The content of this report is essential for diagnosis and may provide important critical findings. This information may be unfamiliar to patients to review without a medical professional present. It is advised that the patient review this report in the presence of a health care provider who can answer questions and explain the details. SURGICAL PATHOLOGY REPORT Patient Name: DESTINEY VELASQUEZMargarette Address: [address] [place] [id number] Gender: M : 1955 (Age: 69) Service: Surgery Location: [place] [address], Hospital #: [id number] Patient Type: [facility] IN[place]IENT Taken: 04/03/2025 Received 04/03/2025 Reported: 04/08/2025 Physician(s): Nani Rajput Dr., M.D. DIAGNOSIS: Lymph node, left pelvic, biopsy: - One lymph node with no evidence of malignancy (0/1) Lymph node, right pelvic, dissection: - Three lymph nodes with no evidence of malignancy (0/3) Prostate, prostatectomy: - Adenocarcinoma, Ada grade 3+3=6 (grade group 1) - Adenocarcinoma involves approximately 1-5% of total prostatic tissue - No lymphovascular space invasion - No extraprostatic extension - Resection margins free of tumor - Extensive granulomatous inflammation with necrosis, likely secondary to BCG therapy smo/04/08/2025 10:10 Examining Pathologist: Norman Escobedo M.D. Report Reviewed and Electronically Signed By Norman Escobedo M.D. SPECIMEN TYPE: A: LEFT PELVIC LYMPH NODES B: RIGHT PELVIC LYMPH NODES C: PROSTATE CLINICAL IMPRESSION AND HISTORY: Malignant neoplasm of prostate GROSS DESCRIPTION: A. Received in formalin labeled with DESTINEY VELASQUEZ and left pelvic lymph nodes is a 1 x 0.5 x 0.3 cm yellow-white fatty lymph node. The specimen is entirely submitted in cassette labeled A1. B. Received in formalin labeled with DESTINEY VELASQUEZ and right pelvic lymph nodes are three yellow-white fatty lymph nodes ranging from 0.6 cm to 1.1 cm. The specimen is entirely submitted in cassette labeled B1. C. Received in formalin labeled with DESTINEY VELASQUEZ and Prostate and consists of a 20 gram, 4.3 x 3.2 x 2.6 cm prostate without attached bilateral seminal vesicles and vas deferens. The contents of the container are filtered yielding no additional tissue. The prostate is intact. Specimen is inked as follows: right - yellow, left - green and rectal surface - black. The specimen is sectioned sequentially from apex to base. Sections show white-white vague nodular cut surface. The specimen is entirely submitted sequentially from apex to base as follows: C1 - Radial sections of right distal apical margin, C2 - Radial sections of left distal apical margin, C3 - Radially sectioned right proximal urethral margin, C4 - Sections left proximal urethral margin, C5 - Individual section of right apex, C6-C7 - Contiguous section of right mid, C8-C9 - Contiguous section of right mid, C10-C11 - Contiguous section of right base, C12 - Individual section of right base, C13 - Individual sectioned of left apex, C14-C15 - Contiguous section of left mid, C16-C17 - Contiguous section left mid, C18-C19 - Contiguous section left base [facility] MICROSCOPIC DESCRIPTION: Microscopic examination supports the above captioned diagnosis. Prostate triple stains were performed on blocks C7 and C15 to confirm the diagnosis. Both stains show areas of atypical glands that lack basal cells and overexpress AMACR, consistent with prostate adenocarcinoma. The findings confirm the diagnosis. PROSTATE GLAND: Radical Prostatectomy SPECIMEN Procedure: Radical prostatectomy Prostate Size Prostate Weight (Grams): 20 g Prostate Greatest Dimension (Centimeters): 4.3 cm Additional Prostate Dimension (Centimeters): 3.2 cm Additional Prostate Dimension (Centimeters): 2.6 cm TUMOR Histologic Type: Acinar adenocarcinoma, conventional (usual) Histologic Grade Grade: Grade group 1 (Ada Score 3 + 3 = 6) Intraductal Carcinoma (IDC): Not identified Treatment Effect: No known presurgical therapy TUMOR QUANTITATION Estimated Percentage of Prostate Involved by Tumor: 1 - 5% Extraprostatic Extension (EPE): Not identified Urinary Bladder Neck Invasion: Cannot be determined - Bladder neck not included with the specimen Seminal Vesicle Invasion: No seminal vesicle present Lymphatic and / or Vascular Invasion: Not Identified MARGINS Margin Status: All margins negative for invasive carcinoma REGIONAL LYMPH NODES Regional Lymph Node Status: All regional lymph nodes negative for tumor Number of Lymph Nodes Examined: 4 DISTANT METASTASIS Distant Site(s) Involved: Cannot be determined pTNM CLASSIFICATION (AJCC 8th Edition) Reporting of pT, pN, and (when applicable) pM categories is based on information available to the pathologist at the time the report is issued. As per the AJCC (Chapter 1, 8th Ed.) it is the managing physician's responsibility to establish the final pathologic stage based upon all pertinent information, including but potentially not limited to this pathology report. pT Category: pT2 pN Category: pN0 CAP VERSION: Prostate Gland 4.3.0.0 Clerical Data Follows A; 14519 B; 74798 C; 00514, [address]29 REPORT IMAGES AND/OR SCANNED DOCUMENTS ONLY VIEWABLE IN PDF FORMAT The immunohistochemical test(s) cited in this report, if any, was developed and its performance characteristics determined by [facility]. It has not been cleared or approved by the U.S. Food and Drug Administration. The FDA has determined that such clearance or approval is not necessary. This test is used for clinical purposes. It should not be regarded as investigational or for research. [facility] is certified under the Clinical Laboratory Improvement Amendments of 1988 (CLIA) as qualified to perform high complexity testing. Immunostains were performed on formalin-fixed paraffin embedded tissue using a polymer diaminobenzidine chromogen detection system. Antibodies used may include clone SP1 (rabbit monoclonal, estrogen receptor), clone 1E2 (rabbit monoclonal progesterone receptor), Ki-67 (rabbit monoclonal, 30-9), CD117 (rabbit polyclonal, c-kit), and anti-Her-2/rusty (4B5) (rabbit monoclonal primary antibody). In the event that immunohistochemistry or special stains have been performed, attending physician has confirmed appropriateness of controls. Frozen section, operating room consultation, gross examination and dissection, and case sign out may have been performed in part or completely in the following laboratories: [facility], [address] [place] [address], [address] [place] [address]. Cornell Francis MD LAB PATHOLOGY ORDERABLES Final Result [facility] Laboratory Receiving [address] [place] [address] * CO AN ELECTIVE ENDOTRACHEAL AIRWAY, CO AN PROCEDURE PLACEHOLDER (04/03/2025 8:45 AM CDT) Narrative Kulwant Mancia CRNA - 04/03/2025 8:45 AM CDT Kulwant Mancia CRNA 04/03/2025 11:48 AM Airway Patient location: OR Urgency: elective Date/time: 04/03/2025 8:18 AM Indications for airway management: anesthesia Difficult airway: no Staff: Placed by: PILOT PLANT OPERATOR: Kulwant Mancia CRNA Airway prep: Preoxygenated: yes Patient position: sniffing Mask difficulty assessment: 1 - vent by mask Sedation level during airway: GA Final airway details: Final airway type: endotracheal airway Tube type: ETT ETT size: 8.0 mm Cuffed: yes Technique used for successful ETT placement: video laryngoscopy Insertion site: oral Blade type: Gio Video blade type: Pineda Blade size: 4 Cormack-Lehane (video): grade I - full view of glottis Cuff inflated with: air ETT to lips: 23 cm Placement verified by: auscultation and CO2 detection Airway secured with: silk tape Number of attempts: 1 Additional comments: Known difficult airway. Limited mouth opening and large upper front incisors appreciated. Atraumatic intubation x1 attempt. Lips and teeth in preoperative condition. us Jun Sprague MD ANESTHESIA ORDERA BLES Edited Result - Final * Check Sample (04/03/2025 6:18 AM CDT) ABO Rh A Negative MBC HCLL OTHER 04/03/2025 6:18 AM CDT 04/03/2025 6:31 AM CDT us Cindy Otoole EMPLOYMENT SERVICES DIRECTOR LAB BLOOD ORDERABLES Final Result [facility] [address] Department [place] [address] MBC * (ABNORMAL) PSA screen (10/03/2024 9:23 AM MACHINE SET UP) PSA-Total 20.08(H) <=6.20 ng/mL Comment: Interpretive Data AGE SEX REFERENCE INTERVAL 0 minutes-150 years Female None 0 minutes-49 years Male None 50-59 years Male 0-3.90 60-69 years Male 0-5.40 70-79 years Male 0-6.20 80-150 years Male 0-6.20 The Vanessa PSA Total assay procedure was used. Results from different manufacturers or methods may not be comparable. Serial testing should be performed using the same method. Current interpretive data last revised 22. Blood 10/03/2024 9:23 AM MACHINE SET UP 10/03/2024 9:43 AM MACHINE SET UP Marco A Childs MD LAB BLOOD ORDERABLES Final Result [facility] [address] Department [place] [address] * COLONOSCOPY (11/03/2023 7:54 AM MACHINE SET UP) Anatomical Region Laterality Modality Other Narrative Procedure Note Benita Jay MD - 11/03/2023 7:54 AM CST [facility] Patient Name: Destiney Velasquez Procedure Date: 11/03/2023 7:54 AM Date of : 1955 Admit Type: Outpatient Age: 68 Gender: Male Attending MD: Benita Jay M.D. Room: [facility] ENDOSCOPY ROOM 2 Note Status: Finalized Patient Profile: This is a 68 year old male history of HLD, skincancer here for colon cancer screening. Last [id number] that was normal. No family history of coloncancer. Procedure: Colonoscopy Indications: Screening for colorectal malignant neoplasm, Last colonoscopy: July 2013 Referring MD: Cornell Stoll M.D. Providers: Benita Jay M.D. Impression: - Two 8 to 10 mm polyps in the transverse colon, removed with a cold snare. Resected andretrieved. - One 4 mm polyp in the sigmoid colon, removed witha cold snare. Resected and retrieved. - External and internal hemorrhoids. Recommendation: - Patient has a contact number available for emergencies. The signs and symptoms of potential delayed complications were discussed with thepatient. Return to normal activities tomorrow. Written discharge instructions were provided to thepatient. - Discharge patient to home. - Resume previous diet. - Continue present medications. - Await pathology results. - Repeat colonoscopy in 3 years for surveillancebased on pathology results. - Return to primary care physician as previously scheduled. Medicines: Monitored Anesthesia Care Complications: No immediate complications. Estimated Blood Loss: Estimated blood loss was minimal. Procedure: Pre-Anesthesia Assessment: - Prior to the procedure, a History and Physicalwas performed, and patient medications and allergieswere reviewed. The patient is competent. The risks and benefits of the procedure and the sedation optionsand risks were discussed with the patient. Allquestions were answered and informed consent was obtained. Patient identification and proposed procedure were verified by the physician, the anesthesiologist and the classroom technology technician in the endoscopy suite. MentalStatus Examination: normal. Prophylactic Antibiotics: The patient does not require prophylactic antibiotics. Prior Anticoagulants: The patient has taken no anticoagulant or antiplatelet agents. Afterreviewing the risks and benefits, the patient was deemed in satisfactory condition to undergo the procedure.The anesthesia plan was to use monitored anesthesiacare (MAC). Immediately prior to administration of medications, the patient was re-assessed foradequacy to receive sedatives. The heart rate, respiratory rate, oxygen saturations, blood pressure, adequacyof pulmonary ventilation, and response to care were monitored throughout the procedure. The physical status of the patient was re-assessed after the procedure. The benefits, risks and alternatives of theprocedure and sedation were discussed and informed consentwas obtained. All questions were answered. Please referto the signed informed consent document in the medical record. The bowel preparation used was Miralax and bisacodyl tablets via split dose instruction. The scope was passed under direct vision. The Pediatric Colonoscope PCF-H190L [id number] was introducedthrough the anus and advanced to the the cecum, identifiedby appendiceal orifice and ileocecal valve. The colonoscopy was performed without difficulty. The patient tolerated the procedure well. The qualityof the bowel preparation was excellent. Bowel prep was administered using a split dose. Findings: The perianal and digital rectal examinations were normal. Two Ida classification IIa (superficial, elevated) polyps werefound in the transverse colon. The polyps were 8 to 10 mm in size. These polyps were removed with a cold snare. Resection and retrieval were complete. A 4 mm polyp was found in the sigmoid colon. The polyp was sessile.The polyp was removed with a cold snare. Resection and retrieval were complete. External and internal hemorrhoids were found during retroflexion. Benita Jay M.D. 11/03/2023 9:50:13 AM Number of Addenda: 0 Note Initiated On: 11/03/2023 7:54 AM Procedure Code(s): --- Professional --- 56834, Colonoscopy, flexible; with removal of tumor(s), polyp(s), or other lesion(s) by snare technique --- Technical --- 10471, Colonoscopy, flexible; with removal of tumor(s), polyp(s), or other lesion(s) by snare technique Diagnosis Code(s): --- Professional --- Z12.11, Encounter for screening for malignant neoplasm of colon D12.3, Benign neoplasm of transverse colon (hepatic flexure orsplenic flexure) D12.5, Benign neoplasm of sigmoid colon K64.8, Other hemorrhoids --- Technical --- Z12.11, Encounter for screening for malignant neoplasm of colon D12.3, Benign neoplasm of transverse colon (hepatic flexure orsplenic flexure) D12.5, Benign neoplasm of sigmoid colon K64.8, Other hemorrhoids CPT copyright 2020 [employer]. All rights reserved. The codes documented in this report are preliminary and upon ekg technician reviewmay be revised to meet current compliance requirements. Recognized by the [employer] for promoting quality in endoscopy us Benita Jay MD ENDOSCOPY PROCEDURES Final Resul t * HM HEPATITIS C SCREENING (02/02/2017) HEP C Normal Historical Provider HEALTH MAINTENANCE Final Result * DEXA SCAN (2009) DEXA Scan Abnormal Comment:Osteopenia Historical Provider HEALTH MAINTENANCE Final Result from Last 3 Months or Most Recently Relevant to Health Maintenance Insurance MEDICARE [facility] MEDICARE COMMERCIAL GENERIC Member Subscriber Plan / Payer (Ef fective 2020-Present) Name:Destiney Velasquez Relation to Subscriber:Self Name:Destiney Velasquez Payer ID:[id number] Group ID:Not on file Type:[employer] Address: [address] [place] [address] [place] Member Subscriber Plan / Payer (Ef fective 2020-Present) Name:Destiney Velasquez Relation to Subscriber:Self Name:Destiney Velasquez Payer ID:[id number] Group ID:Not on file Type:[employer] Address: [address] [place] [address] [place] Member Subscriber Plan / Payer (Ef fective 2023-Present) Name:Destiney Velasquez Relation to Subscriber:Self Name:Destiney Velasquez Payer ID:[id number] Group ID:Not on file Type:[employer] Address: [address] [place] [address] [place] [address] Advance Directives For more information, please contact: [phone] * Full Code (Latest Code Status on File) Date Activated Date Inactivated Comments 04/03/2025 3:08 PM 04/04/2025 7:07 PM * Full Code Date Activated Date Inactivated Comments 11/03/2023 8:08 AM 11/03/2023 2:38 PM * Full Code Date Activated Date Inactivated Comments 11/03/2023 8:08 AM 11/03/2023 8:08 AM Care Teams Coke Oven Patcher Relationship Specialty Start Date End Date Cornell Stoll MD [address] [place] [address] PCP - General 02/18/17 [place] [address] [place] [address] [place] [address] Consulting Physician General Surgery 04/04/25
--- OUTSIDE RECORDS SUMMARY | 2025-06-18 08:15 | XMS_ITS | Encounter Summary ---
Author Organization [facility] Address [address] [facility] [place] [address] Care Team Providers Care Agricultural Equipment Sales Engineer Name Role Phone Cornell Stoll MD Primary Care Provider [phone] [phone] Encounter Details Date Type Department Care Team (Late st Contact Info) Description 02/14/2019 Lab Requisition [facility] [address] [facility] [place] [address] Say Shannon MD [address] [place] [address] Social History Tobacco Use Types Packs/Day Years Used Date Smoking Tobacco: Never Smokeless Tobacco: Never Alcohol Use Standard Drinks/Week Comments No 0 (1 standard drink = 0.6 oz pur e alcohol) Sex and Gender Information Value Date Recorded Sex Assigned at Not on file 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 SKIN, above left elbow laterally: DERMAL SCAR (L90.5) RESIDUAL SQUAMOUS CELL CARCINOMA NOT IDENTIFIED 9 1:10 PM CDT DERMATOPATHOLOGY LABORATORY at 1310 CDT Clinical History R/O bx proven SCCIS. Previous Bx: [id number]. Check margins. 9 1:10 PM CDT DERMATOPATHOLOGY LABORATORY Gross Description Specimen A: Received is one formalin filled container labeled with the patient's name and designated above left elbow laterally.The specimen consists of an ellipse measuring [id number] and is oriented with the notch at the 12 o'clock position labeled on the requisition as notch 12 o'clock. The epidermal surface consists of a centrally located 6x6mm previous biopsy site. The 12 to 6 o'clock margin is inked green. The 6 o'clock to 12 o'clock margin is inked black. The 12 o'clock tip is submitted in cassette 1. The 6 o'clock tip is submitted in cassette 2. The remainder of the ellipse is serially sectioned and submitted in cassettes 3-4. Jar 0. 9 1:10 PM CDT DERMATOPATHOLOGY LABORATORY Microscopic Description Specimen A. SKIN, above left elbow laterally: There are fibroblasts and collagen bundles oriented parallel to the skin surface. There are elongated blood vessels, some of which are oriented perpendicular to the skin surface. No residual squamous cell carcinoma is identified. 9 1:10 PM CDT DERMATOPATHOLOGY LABORATORY Disclaimer An external and internal positive and negative controls are appropriate for the histochemical, immunohistochemical and immunofluorescence stain(s) in this case (if any), except where stated explicitly. The performance characteristics of the stain(s) cited in this report were developed and its performance characteristic determined by the Dermatopathology Laboratory at [facility], directed by Dr. Vin Terrazas. These tests need not be, and therefore are not, approved by the [place] Food and Drug Administration. The tests are used for clinical purposes. Billing Codes Specimen Charges Stain Charges 73226 1 9 1:10 PM CDT DERMATOPATHOLOGY LABORATORY Embedded Images 9 1:10 PM CDT DERMATOPATHOLOGY LABORATORY Pathology/Cytolog y TISSUE SPECIMEN FROM SKIN / Unknown 02/13/2019 02/14/2019 11:31 AM CDT Say Shannon MD LAB - PATHOLOGY/CYTOLOGY ORD ERABLES Final Result DERMATOPATHOLOGY LABORATORY [facility] - Department of Dermatology [address] [place] [address] 5th Floor Lab [address] [phone] documented in this encounter Visit Diagnoses Not on filedocumented in this encounter Care Teams Agricultural Equipment Sales Engineer Relationship Specialty Start Date End Date Cornell Stoll MD [address] [place] [address] PCP - General Internal Medicine 01/09/24 documented as of this encounter
--- OUTSIDE RECORDS SUMMARY | 2025-06-18 08:15 | XMS_ITS | Clinical Summary ---
Author Organization [facility] Address [address] [place] [address] Phone Care Team Providers Care Seismograph Shooter Name Role Phone Unavailable Primary Care Provider Unavailabl e Allergies No known active allergies Medications Azelastine HCl 0.15 % NA SOLN 2 Puffs by Nasal route 2 times daily. Each nostril Active fluticasone 50 MCG/ACT NA SUSP 2 Sprays by Nasal route daily. Use in each nostril as directed. Active Calcium 1500 MG PO TABS Take by mouth. Active Ascorbic Acid (VITAMIN C) 1000 MG PO TABS Take by mouth. Active tamsulosin 0.4 MG PO CAPS Take by mouth. Active Atomoxetine HCl (STRATTERA) 80 MG PO CAPS Take by mouth. Active venlafaxine 75 MG PO TABS Take by mouth. Active pravastatin 10 MG PO TABS Take by mouth. Active Wydrs-8-sedc Ethyl Esters (LOVAZA) 1 G PO CAPS Take by mouth. Active mirtazapine 15 MG PO TABS Take by mouth. Active Active Problems Problem Noted Date Diagnosed Date Obsessive compulsive disorder 07/16/2019 Attention-deficit disorder, predominantly hyperactive-impulsive type 07/16/2019 Obstructive sleep apnea Social History Tobacco Use Types Packs/Day Years Used Date Smoking Tobacco: Never Smokeless Tobacco: Never Alcohol Use Standard Drinks/Week Comments Not Currently 0 (1 standard drink = 0.6 oz pur e alcohol) Sexually Active Control Partners Comments Not Currently Sex and Gender Information Value Date Recorded Sex Assigned at Not on file Legal Sex Male 8:32 PM CDT Gender Identity Not on file Sexual Orientation Not on file Plan of Treatment Health Maintenance Due Date Last Done Comments Hepatitis C Virus (HCV) Screening 1955 TdaP Immunization 1955 Cologuard 1998 Colonoscopy 1998 Colorectal Cancer Screening 1998 Immunochemical Fecal Occult Blood 1998 Pneumococcal Immunization (5 0+ years) (1 of 1 - PCV) 2003 Zoster Immunization (1 of 2) 2003 SARS-COV-2 Immunization (4 - season) 2024 09/14/2021, 02/14/2021, 01/16/2021 Influenza Immunization (#1) 07/22/202509/21, 08/17/2016, 12/16/2015 Respiratory Syncytial Virus (RSV) Immunization (Adult) (1 - 1-dose 75+ series) 2028 Hepatitis B Immunization Aged Out No longer eligible based on patient's age to complete this topic Human Papillomavirus (HPV) Immunization Aged Out No longer eligible b ased on patient's age to complete this topic Meningococcal Immunization (ACWY) Aged Out No longer eligible b ased on patient's age to complete this topic Rotavirus Immunization Aged Out No lo nger eligible based on patient's age to complete this topic Insurance MEDICARE COMMERCIAL GENERIC
--- OUTSIDE RECORDS SUMMARY | 2025-06-18 08:15 | XMS_ITS | Encounter Summary ---
Author Organization [facility] Address [address] [facility] [place] [address] Care Team Providers Care Fish And Wildlife Technician Name Role Phone Cornell Stoll MD Primary Care Provider [phone] [phone] Encounter Details Date Type Department Care Team (Late st Contact Info) Description 08/03/2018 Lab Requisition [facility] [address] [facility] [place] [address] Say Shannon MD [address] [place] [address] Social History Tobacco Use Types Packs/Day Years Used Date Smoking Tobacco: Never Assessed Sex and Gender Information Value Date Recorded Sex Assigned at Not on file 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 Gender Identity Not on file Sexual Orientation Not on file documented as of this encounter Plan of Treatment Not on file documented as of this encounter Procedures Procedure Name Priority Date/Time Associated Diagnosis Comments DERMATOPATHOLOGY Routine 08/02/2018 12:0 0 AM CDT documented in this encounter Results * DERMATOPATHOLOGY (08/02/2018 12:00 AM CDT) Case Report Dermatopathology Report Case: [id number] Authorizing Provider: Say Shannon MD Collected: 08/02/2018 12:00 AM Pathologist: Farheen Staples MD Received: 08/03/2018 12:53 PM Specimens: A) - Skin, proximal left radial extensor forearm B) - Skin, proximal left ulnar extensor forearm 3:33 PM T DERMATOPATHOLOGY LABORATORY Final Diagnosis Specimen A. SKIN, proximal left radial extensor forearm: SQUAMOUS CELL CARCINOMA, KERATOACANTHOMA TYPE (C44.629) NOT PRESENT AT SAMPLED MARGIN Specimen B. SKIN, proximal left ulnar extensor forearm: SQUAMOUS PROLIFERATION (D48.5) PRESENT AT MARGIN (see microscopic description and comment) 3:33 PM [facility] DERMATOPATHOLOGY LABORATORY at 1533 CDT Clinical History A: R/O SCC. Check margins. B: R/O BCC. Check margins. 3:33 PM [facility] DERMATOPATHOLOGY LABORATORY Gross Description Specimen A: Received is one formalin filled container labeled with the patients name and designated proximal left radial extensor forearm. The specimen consists of a shave removal measuring [id number], the margin is inked green, bisected. Jar 0. Specimen B: Received is one formalin filled container labeled with the patients name and designated proximal left ulnar extensor forearm. The specimen consists of a shave removal measuring [id number], the margin is inked green, and 5v4x4pw, [id number] submitted in cassette 1. Jar 0. 3:33 PM [facility] DERMATOPATHOLOGY LABORATORY Microscopic Description Specimen A. SKIN, proximal left radial extensor forearm: Sections show an endo exophytic crateriform lesion with a keratotic plug, formed by confluent follicle-like structures with relatively large keratinocytes and neutrophilic abscesses. This lesion is not present at the sampled margin of the specimen. Specimen B. SKIN, proximal left ulnar extensor forearm: Sections show inward epidermal hyperplasia with cystic features and mild maturational disarray of keratinocytes extending throughout the full thickness of the specimen. This lesion is present at the base of the specimen. COMMENT: The histological differential diagnosis includes pseudo epitheliomatous hyperplasia, an irritated, inflamed and cystic benign keratosis, an actinic keratosis with adnexal extension, and squamous cell carcinoma keratoacanthoma type. Clinicopathologic correlation is recommended. 3:33 PM [facility] DERMATOPATHOLOGY LABORATORY Disclaimer An external and internal positive and negative controls are appropriate for the histochemical, immunohistochemical and immunofluorescence stain(s) in this case (if any), except where stated explicitly. The performance characteristics of the stain(s) cited in this report were developed and its performance characteristic determined by the Dermatopathology Laboratory at [facility]. These tests need not be, and therefore are not, approved by the [place] Food and Drug Administration. The tests are used for clinical purposes. Billing Codes Specimen Charges Stain Charges 08503 01640 1 1 8 3:33 PM CDT DERMATOPATHOLOGY LABORATORY Embedded Images 8 3:33 PM CDT DERMATOPATHOLOGY LABORATORY Pathology/Cytology TISSUE SPECIMEN FROM SKIN / Unknown 08/02/2018 08/03/2018 12:53 PM CDT Miscellaneous samples (specimen) TISSUE SPECIMEN FROM SKIN / Unknown 08/02/2018 08/03/2018 12:53 PM CDT Say Shannon MD LAB - PATHOLOGY/CYTOLOGY ORD ERABLES Final Result DERMATOPATHOLOGY LABORATORY [facility] - Department of Dermatology [address] [place] [address] 5th Floor Lab B [address] [phone] documented in this encounter Visit Diagnoses Not on filedocumented in this encounter Care Teams Fish And Wildlife Technician Relationship Specialty Start Date End Date Cornell Stoll MD [address] [place] [address] PCP - General Internal Medicine 01/09/24 documented as of this encounter
--- OUTSIDE RECORDS SUMMARY | 2025-06-18 08:15 | XMS_ITS | Encounter Summary ---
Author Organization [facility] Address [address] [place] [address] Care Team Providers Care Purchase Request Editor Name Role Phone Cornell Stoll MD Primary Care Provider [phone] [phone] Encounter Details Date Type Department Care Team (Late st Contact Info) Description 02/12/2019 [facility] Outpatient Visit EXTERNAL NON-[facility] DEPT Unknown, Provider Social History Tobacco Use Types Packs/Day Years Used Date Smoking Tobacco: Never Smokeless Tobacco: Never Alcohol Use Standard Drinks/Week Comments No 0 (1 standard drink = 0.6 oz pur e alcohol) Sex and Gender Information Value Date Recorded Sex Assigned at Not on file 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
--- OUTSIDE RECORDS SUMMARY | 2025-06-18 08:15 | XMS_ITS | Encounter Summary ---
Author Organization [facility] Address [address] [place] [address] Care Team Providers Care Heading Pinner Name Role Phone Cornell Stoll MD Primary Care Provider +1 [phone] Encounter Details Date Type Department Care Team (Late st Contact Info) Description 03/20/2019 [facility] Outpatient Visit EXTERNAL NON-[facility] DEPT Unknown, Provider Social History Tobacco Use Types Packs/Day Years Used Date Smoking Tobacco: Never Smokeless Tobacco: Never Alcohol Use Standard Drinks/Week Comments No 0 (1 standard drink = 0.6 oz pur e alcohol) Sex and Gender Information Value Date Recorded Sex Assigned at Not on file 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
--- OUTSIDE RECORDS SUMMARY | 2025-06-18 08:15 | XMS_ITS | Encounter Summary ---
Author Organization [facility] Address [address] [place] [address] Care Team Providers Care Income Tax Consultant Name Role Phone Cornell Stoll MD Primary Care Provider [phone] [phone] Encounter Details Date Type Department Care Team (Late st Contact Info) Description 10/23/2021 Lab Requisition [facility] [address] [facility] [place] [address] Say Shannon MD [address] [place] [address] Social History Tobacco Use Types Packs/Day Years Used Date Smoking Tobacco: Never Smokeless Tobacco: Never Alcohol Use Standard Drinks/Week Comments No 0 (1 standard drink = 0.6 oz pur e alcohol) Sex and Gender Information Value Date Recorded Sex Assigned at Not on file Legal Sex Male 5:25 PM ADMINISTRATION DEAN Gender Identity Not on file Sexual Orientation [...] Priority Date/Time Associated Diagnosis Comments DERMATOPATHOLOGY Routine 10/21/2021 12:0 0 AM ADMINISTRATION DEAN documented in this encounter Results * DERMATOPATHOLOGY (10/21/2021 12:00 AM ADMINISTRATION DEAN) Case Report Dermatopathology Report Case: [id number] Authorizing Provider: Say Shannon MD Collected: 10/21/2021 12:00 AM Ordering Location: [facility] DermPath Lab Received: 10/23/2021 01:27 PM Pathologist: Elizabeth Kim MD Specimens: A) - Skin, doral left hand B) - Skin, dorsal left hand proximal to middle MCP joint 4:21 PM [facility] DERMATOPATHOLOGY LABORATORY Final Diagnosis Specimen A. SKIN, doral left hand: HYPERPLASTIC (HYPERTROPHIC) ACTINIC KERATOSIS, INFLAMED (L57.0) (see microscopic description) Specimen B. SKIN, dorsal left hand proximal to middle MCP joint: HYPERPLASTIC (HYPERTROPHIC) ACTINIC KERATOSIS (L57.0) (see microscopic description) 4:21 PM [facility] DERMATOPATHOLOGY LABORATORY at [address] [facility] Clinical History A-B: R/O SCC. 4:21 PM [facility] DERMATOPATHOLOGY LABORATORY Gross Description Specimen A: Received is one formalin filled container labeled with the patient's name and designated doral left hand. The specimen consists of a curettage and desiccation biopsy measuring [id number]. Jar 0. Specimen B: Received is one formalin filled container labeled with the patient's name and designated dorsal left hand proximal to middle MCP joint. The specimen consists of a curettage and desiccation biopsy measuring [id number]. Jar 0. 1 4:21 PM [facility] DERMATOPATHOLOGY LABORATORY Microscopic Description Specimen A. SKIN, doral left hand: There is hyperkeratosis alternating with parakeratosis. There is epidermal hyperplasia with disorderly maturation of keratinocytes with nuclear pleomorphism confined to the lower half of the epidermis. Adnexal extension of the lesion is seen. The lesion is inflamed. Specimen B. SKIN, dorsal left hand proximal to middle MCP joint: There is hyperkeratosis alternating with parakeratosis. There is epidermal hyperplasia with disorderly maturation of keratinocytes with nuclear pleomorphism confined to the lower half of the epidermis. Adnexal extension of the lesion is seen. 4:21 PM [facility] DERMATOPATHOLOGY LABORATORY Disclaimer An external and internal positive and negative controls are appropriate for the histochemical, immunohistochemical and immunofluorescence stain(s) in this case (if any), except where stated explicitly. The performance characteristics of the stain(s) cited in this report were developed and its performance characteristic determined by the Dermatopathology Laboratory at [facility], directed by Dr. Vin Terrazas. These tests need not be, and therefore are not, approved by the [place] Food and Drug Administration. The tests are used for clinical purposes. Billing Codes Specimen Charges Stain Charges 95886 70852 1 1 1 4:21 PM ADMINISTRATION DEAN DERMATOPATHOLOGY LABORATORY Embedded Images 4:21 PM [facility] DERMATOPATHOLOGY LABORATORY Pathology/Cytology TISSUE SPECIMEN FROM SKIN / Unknown 10/21/2021 10/23/2021 1:27 PM ADMINISTRATION DEAN Miscellaneous samples (specimen) TISSUE SPECIMEN FROM SKIN / Unknown 10/21/2021 10/23/2021 1:27 PM ADMINISTRATION DEAN us Say Shannon MD LAB - PATHOLOGY/CYTOLOGY ORD ERABLES Final Result DERMATOPATHOLOGY LABORATORY [facility] - Department of Dermatology [address] [place] [address], [facility] [phone] documented in this encounter Visit Diagnoses Not on filedocumented in this encounter Care Teams Income Tax Consultant Relationship Specialty Start Date End Date Cornell Stoll MD [address] [place] [address] PCP - General Internal Medicine 01/09/24 documented as of this encounter
--- OUTSIDE RECORDS SUMMARY | 2025-06-18 08:15 | XMS_ITS | Encounter Summary ---
Author Organization [facility] Address [address] [facility] [place] [address] Care Team Providers Care Rehabilitation Program Coordinator Name Role Phone Cornell Stoll MD Primary Care Provider [phone] Encounter Details Date Type Department Care Team (Late st Contact Info) Description 01/11/2019 Lab Requisition [facility] [address] [facility], [place] [address] Say Shannon MD [address] [place] [address] Social History Tobacco Use Types Packs/Day Years Used Date Smoking Tobacco: Never Smokeless Tobacco: Never Alcohol Use Standard Drinks/Week Comments No 0 (1 standard drink = 0.6 oz pur e alcohol) Sex and Gender Information Value Date Recorded Sex Assigned at Not on file 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 Sex 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 SKIN, above left elbow laterally: SQUAMOUS CELL CARCINOMA IN SITU; PRESENT AT THE BASE OF THE SPECIMEN (D04.62) (see microscopic description and comment) 9 3:47 PM [facility] DERMATOPATHOLOGY [facility] at [address] [facility] Clinical History R/O SCC. Check margins. 9 3:47 PM [facility]ERMAT[facility] Gross Description Specimen A: Received is one formalin filled container labeled with the patients name and designated above left elbow laterally. The specimen consists of a shave removal measuring 1d8h9pt, the margin is inked green. Jar 0. 9 3:47 PM [facility] DERMATOPATHOLOGY [facility] Microscopic Description Specimen A. SKIN, above left elbow laterally: The epidermis shows parakeratosis and an endophytic lesion with full thickness disorderly maturation of keratinocytes, mitoses at different levels, and dyskeratotic cells. The lesion extends to the base of the biopsy. COMMENT: An invasive squamous cell carcinoma cannot be ruled out. 9 3:47 PM [facility] Disclaimer An external and internal positive and negative controls are appropriate for the histochemical, immunohistochemical and immunofluorescence stain(s) in this case (if any), except where stated explicitly. The performance characteristics of the stain(s) cited in this report were developed and its performance characteristic determined by the Dermatopathology Laboratory at [facility], directed by Dr. Vin Terrazas. These tests need not be, and therefore are not, approved by the [place] Food and Drug Administration. The tests are used for clinical purposes. Billing Codes Specimen Charges Stain Charges 57807 1 9 3:47 PM [facility] Embedded Images 9 3:47 PM [facility] Pathology/Cytolog y TISSUE SPECIMEN FROM SKIN / Unknown 01/10/2019 01/11/2019 12:00 PM SLASHER RUNNER Say Shannon MD LAB - PATHOLOGY/CYTOLOGY ORD ERABLES Final Result Performing Organization Address City/State/[facility] Co de Phone Number DERMATOPATHOLOGY LABORATORY [facility] - Department of Dermatology [address] [place] [address], 5th Floor Lab [address] [phone] documented in this encounter Visit Diagnoses Not on filedocumented in this encounter Care Teams Rehabilitation Program Coordinator Relationship Specialty Start Date End Date Cornell Stoll MD [address] [place] [address] PCP - General Internal Medicine 01/09/24 documented as of this encounter
--- OUTSIDE RECORDS SUMMARY | 2025-06-18 08:15 | XMS_ITS | Encounter Summary ---
Author Organization [facility] Healthcare Address [address] [place] [address] Care Team Providers Care Behavioral Intervention Specialist Name Role Phone Cornell Stoll MD Primary Care Provider + Cornell Francis MD Unavailable Reason for Referral * MRI/CAT/PET Scan (Routine) - Closed Specialty Diagnoses / Procedures Referred By Contac t Referred To Contact Radiology Diagnoses Malignant neoplasm of prostate (HCC) Procedures MRI PELVIS PROSTATE W WO CONTRAST Marco A Childs MD Phone: tel: fax: [address] [address] Referral ID Status Reason Start Date Expiration Date Visits Re quested Visits Authorized [id number] Closed 03/08/2024 04/07/2025 1 1 Encounter Details Date Type Department Care Team (Late st Contact Info) Description 03/08/2024 Community Orders [facility] [place] [address] [place] [address] [place] [address] Malignant neoplasm of prostate (HCC) (Primary Dx) Social History Tobacco Use Types Packs/Day Years Used Date Smoking Tobacco: Former Smokeless Tobacco: Never Alcohol Use Standard Drinks/Week Comments No 0 (1 standard drink = 0.6 oz pur e alcohol) Personal Safety Answer Date Recorded Have you ever been in or are you currently in a harmful physical or emotional relationship or is someone making you feel afraid or unsafe? 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 Findings of acute on chronic prostatitis and benign prostatic hyperplasia. 2. No focal suspicious lesions. Dictated by: Adan Nagel M.D. The radiology attending physician has personally reviewed this study, and had reviewed and/or edited this written report and agrees with it. Electronically signed by: Bruno Cochran M.D. Narrative 04/07/2024 3:38 PM CDT EXAMINATION: MAGNETIC RESONANCE IMAGING OF THE PELVIS WITHOUT AND WITH CONTRAST HISTORY: 68-year-old with elevated PSA TECHNIQUE: MR imaging of the prostate gland was performed with a torso phased array coil at 3T prior to and following administration of intravenous gadolinium. Protocol: Prostate 3T Contrast: Dotarem 16 mL COMPARISON: 04/08/2020 FINDINGS: Prostate volume: 27 cc The prostate transition zone is enlarged with findings of benign prostatic hyperplasia. Again seen is is streaky T2 hypointensity within the peripheral zone, right greater than left. There is hypervascularity within the peripheral zones. The prostate was assessed using the PI-RADS 2 scoring system. No suspicious focal lesions. Unchanged previously described 1.0 cm diffusion restricting, enhancing nodule projecting into the urinary bladder, consistent with sequela of benign prostatic hyperplasia. No enlarged lymph nodes are identified. No suspicious osseous lesions are identified. The bladder is mildly thick walled and trabeculated, compatible with chronic bladder outlet obstruction. There are postsurgical changes of posterior instrumented spinal fusion. Procedure Note Bruno Cochran MD PhD - 04/07/2024 EXAMINATION: MAGNETIC RESONANCE IMAGING OF THE PELVIS WITHOUT AND WITH CONTRAST HISTORY: 68-year-old with elevated PSA TECHNIQUE: MR imaging of the prostate gland was performed with a torso phased array coil at 3T prior to and following administration of intravenous gadolinium. Protocol: Prostate 3T Contrast: Dotarem 16 mL COMPARISON: 04/08/2020 FINDINGS: Prostate volume: 27 cc The prostate transition zone is enlarged with findings of benign prostatic hyperplasia. Again seen is is streaky T2 hypointensity within the peripheral zone, right greater than left. There is hypervascularity within the peripheral zones. The prostate was assessed using the PI-RADS 2 scoring system. No suspicious focal lesions. Unchanged previously described 1.0 cm diffusion restricting, enhancing nodule projecting into the urinary bladder, consistent with sequela of benign prostatic hyperplasia. No enlarged lymph nodes are identified. No suspicious osseous lesions are identified. The bladder is mildly thick walled and trabeculated, compatible with chronic bladder outlet obstruction. There are postsurgical changes of posterior instrumented spinal fusion. IMPRESSION: 1. Findings of acute on chronic prostatitis and benign prostatic hyperplasia. 2. No focal suspicious lesions. Dictated by: Adan Nagel M.D. The radiology attending physician has personally reviewed this study, and had reviewed and/or edited this written report and agrees with it. Electronically signed by: Bruno Cochran M.D. Marco A Childs MD [facility] MRI PROCEDURES F inal Result documented in this encounter Visit Diagnoses Diagnosis Malignant neoplasm of prostate (HCC)- Primary Malignant neoplasm of prostate Malignant neoplasm of prostate (HCC) Malignant neoplasm of prostate documented in this encounter Care Teams Behavioral Intervention Specialist Relationship Specialty Start Date End Date Cornell Stoll MD [address] [place] [address] PCP - General 02/18/17 [place] [address] [place] [address] Consulting Physician General Surgery 04/04/25 documented as of this encounter
--- OUTSIDE RECORDS SUMMARY | 2025-06-18 08:15 | XMS_ITS | Referral Summary ---
Author Organization [facility] Address [address] [place] [address] Care Team Providers Care Heel Shaper Name Role Phone Cornell Stoll MD Primary Care Provider + Cornell Francis MD Unavailable Encounters Date Type Department Care Team Description 04/03/2025 5:26 AM CDT - 04/04/2025 3:07 PM CDT Hospital Encounter [address] [address] Cornell Francis MD Malignant neoplasm of prostate (HCC) Discharge Disposition: Discharge to home or self care 04/03/2025 7:30 AM CDT - 04/03/2025 12:00 PM CDT Surgery [facility] [address] [place] [phone] Cornell Francis MD Robotic Assisted Radical Prostatectomy, Bilateral Pelvic Lymph Node Dissection, Laparoscopic Urethral Suspension 04/03/2025 8:06 AM CDT Anesthesia Event [facility] [address] [place] [phone] Jun Sprague MD Jarvis, Gary Joseph, CRNA from Last 3 Months Allergies No known active allergies Medications aspirin [...] (04/22/2020): Added automatically from request for surgery [id number] Enlarged prostate 04/21/2020 Overview (04/21/2020): Added automatically from request for surgery [id number] Elevated PSA 04/21/2020 Overview (04/21/2020): Added automatically from request for surgery [id number] Healthcare maintenance 08/18/2017 Medication management 08/18/2017 Attention deficit disorder (ADD) without hyperac tivity 12/16/2015 Overview (02/25/2017): ADD Hyperlipidemia 12/16/2015 Overview (02/25/2017): Hyperlipidemia Hypogonadism in male 04/06/2014 Overview (02/24/2017): Hypogonadism male Vitamin D deficiency 08/16/2012 Overview (02/24/2017): Vitamin D deficiency Immunizations Immunization Administration Dates Next Due Influenza, Quadrivalent, Leonor l Culture-based MDCK, Preservative Free, Antibiotic Free, Intramuscular 10/06/2017 Influenza, Quadrivalent, Spl it, Preservative Free, Intradermal 08/17/2016,12/16/2015 Influenza, Split 08/16/2012,08/10/2011, 0 Influenza, Trivalent, Recomb inant, Egg Free, Preservative Free, Antibiotic Free, IM (FLUBLOK) 12/13/2014 Tdap 06/28/2006 Social History Tobacco Use Types Packs/Day Years [...] on file 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 Gender Identity Male 10/31/2020 11:25 AM SPACE CONTROL AGENT Sexual Orientation Straight 04/18/2020 2: 27 PM CDT Last Filed Vital Signs Vital Sign Reading [...] 04/03/2025 6:25 AM CDT Plan of Treatment Not on file Medical Devices Implanted Type Area Catering Truck Operator Device Identifier Shelf Expiration Date Model / Serial / Lot Biotronik Lead Lead Heart Biotronik [id number] / / Biotronik Lead Lead Heart Biotronik [id number] / / Biotronik Edora 8-08/27/2024 Implanted:05/2024 (Quantity not on file) Pacemaker Left: Chest [id number] / / L1-L3 Fusion N/A: Spine Lumbar Explanted Type Area Catering Truck Operator Device Identifier Shelf Expiration Date Model / Serial / Lot Implantable Loop Recorder-2021 Implanted:04/22 by Jesus Lau MD (Quantity not on file) Implantable Loop Recorder N/A: Chest Biotronik BIOMONITOR IIIM / [id number] / Procedures Procedure Name Priority Date/Time Associated Diagnosis Comments EGFR Routine 04/04/2025 1:14 AM CDT HEMOGLOBIN AND HEMATOCRIT Routine 04/04/2025 1:14 AM CDT BASIC METABOLIC PANEL Routine 04/04/2025 1:14 AM CDT SURGICAL PATHOLOGY Routine 04/03/2025 11 :23 AM CDT Malignant neoplasm of prostate (HCC) [place] AN PROCEDURE PLACEHOLDER Routine 04/03/2025 8:45 AM CDT NJ AN ELECTIVE ENDOTRACHEAL AIRWAY Routine 04/03/2025 8:45 AM CDT XI PROSTATECTOMY - LAPAROSCOPIC ROBOTIC ASSISTED 04/03/2025 8:06 AM CDT Malignant neoplasm of prostate (HCC) B CHECK SAMPLE STAT 04/03/2025 6:18 AM CDT PSA SCREEN Routine 10/03/2024 9:23 AM SPACE CONTROL AGENT COLONOSCOPY 11/03/2023 7:54 AM SPACE CONTROL AGENT HEPATITIS C SCREENING Routine 02/02/2017 DEXA SCAN [...] LAB BLOOD ORDERABLES Fin al Result [facility] [address] Department [place] [address] * Hemoglobin and hematocrit (04/04/2025 1:14 AM CDT) Hgb 13.5 13.0 - 17.5 g/dL Hct 39.4 38.9 - 50.3 % [facility] Blood 04/04/2025 1:14 AM CDT 04/04/2025 1:36 AM CDT Cornell Francis MD LAB BLOOD ORDERABLES Fin al Result Performing Organization Address City/[facility]/ZIP Co de Phone Number [facility] [address] [employer] [place] [place] [address] * (ABNORMAL) Basic metabolic panel (04/04/2025 1:14 AM CDT) Sodium 138 135 - 145 mmol/L Potassium, pl 4.4 3.3 - 4.9 mmol/L [facility] Chloride 106 97 - 110 mmol/L [facility] CO2 21(L) 22 - 32 mmol/L [facility] Anion gap 11 2 - 15 mmol/L [facility] BUN 14 6 - 25 mg/dL [facility] Creatinine 1.01 0.80 - 1.30 mg/dL [facility] Glucose 160 70 - 199 mg/dL [facility] Comment: Interpretive Data Fasting glucose >/= 126 [...] 2022. Calcium 8.1(L) 8.5 - 10.3 mg/dL [facility] Blood 04/04/2025 1:14 AM CDT 04/04/2025 1:36 AM CDT Cornell Francis MD LAB BLOOD ORDERABLES Fin al Result Performing Organization Address [facility]/ZIP Co de Phone Number [facility] [address] [place] [address] * Surgical pathology (04/03/2025 11:23 AM CDT) [...] i n lab following procedure Narrative PATHOLOGY [facility] - 04/08/2025 10:10 AM CDT [address] [address] Tele: Camryn Sutherland MD - Telecommunications Switch Technician Note to Patients: This report may contain [...] details. SURGICAL PATHOLOGY REPORT Patient Name: DESTINEY VELASQUEZ Address: [address] [place] [id number] Gender: M : 1955 (Age: 69) Service: Surgery Location: [place] [address], Hospital #: [id number] Patient Type: [facility] INPATIENT Taken: 04/03/2025 Received 04/03/2025 Reported: 04/08/2025 Physician(s): Nani Rajput Dr., M.D. DIAGNOSIS: Lymph node, left pelvic, biopsy: - One lymph node with no evidence of malignancy (0/1) Lymph node, right pelvic, dissection: - Three lymph nodes with no evidence of malignancy (0/3) Prostate, prostatectomy: - Adenocarcinoma, [place] grade 3+3=6 (grade group 1) - Adenocarcinoma involves approximately 1-5% of total prostatic tissue - No lymphovascular space invasion - No extraprostatic extension - Resection margins free of tumor - Extensive granulomatous inflammation with necrosis, likely secondary to BCG therapy 04/08/2025 10:10 Examining Pathologist: Norman Escobedo M.D. Report [...] mid, C18-C19 - Contiguous section left base [facility] MICROSCOPIC DESCRIPTION: Microscopic examination supports the above [...] (usual) Histologic Grade Grade: Grade group 1 ([place] Score 3 + 3 = 6) Intraductal [...] Prostate Gland 4.3.0.0 Clerical Data Follows A; 29202 B; 62166 C; 18477, 37261 REPORT IMAGES AND/OR SCANNED DOCUMENTS ONLY VIEWABLE IN PDF FORMAT The immunohistochemical test(s) cited in this report, if any, was developed and its performance characteristics determined by [facility] Department. It has not been cleared or approved by the U.S. Food and Drug Administration. The FDA has determined that such clearance or approval is not necessary. This test is used for clinical purposes. It should not be regarded as investigational or for research. [facility] is certified under the Clinical Laboratory [...] part or completely in the following laboratories: [facility], [address] [address], [place] [address] [facility], [address], [place] [address]. us Cornell Francis MD LAB PATHOLOGY ORDERABLES Final Result PATHOLOGY [facility] Laboratory Receiving [address] [place], [place] [address] * [place] AN ELECTIVE ENDOTRACHEAL AIRWAY, NJ AN PROCEDURE PLACEHOLDER (04/03/2025 8:45 AM CDT) Narrative Kulwant Mancia CRNA - 04/03/2025 8:45 AM CDT Kulwant Mancia CRNA 04/03/2025 11:48 AM Airway Patient location: OR Urgency: elective Date/time: 04/03/2025 8:18 AM Indications for airway management: anesthesia Difficult airway: no Staff: Placed by: NIGHT GUARD: Kulwant Mancia CRNA Airway prep: Preoxygenated: yes [...] 6:18 AM CDT 04/03/2025 6:31 AM CDT Cindy Otoole NP LAB BLOOD ORDERABLES Final Result Performing Organization Address City/[facility]/ZIP Co de Phone Number [facility] [address] Department [place] [address] MBC * (ABNORMAL) PSA screen (10/03/2024 9:23 AM SPACE CONTROL AGENT) PSA-Total 20.08(H) <=6.20 ng/mL Comment: Interpretive Data [...] last revised 22. Blood 10/03/2024 9:23 AM SPACE CONTROL AGENT 10/03/2024 9:43 AM SPACE CONTROL AGENT Marco A Childs MD LAB BLOOD ORDERABLES Final Result Performing Organization Address City/[facility]/ZIP Co de Phone Number [facility] [address] [facility] Department [place] [address] * COLONOSCOPY (11/03/2023 7:54 AM SPACE CONTROL AGENT) Anatomical Region Laterality Modality Other Narrative Procedure Note Benita Jay MD - 11/03/2023 7:54 AM CST [facility] Patient Name: Destiney Velasquez Procedure Date: 11/03/2023 7:54 AM Date of : 1955 Admit Type: Outpatient Age: 68 Gender: Male Attending MD: Benita Jay M.D. Room: [facility] END[facility]COPY ROOM 2 Note Status: Finalized Patient Profile: This is a 68 year old male history of HLD, skincancer here for colon cancer screening. Last [id number] that was normal. No family history of [...] by the physician, the anesthesiologist and the hardware technician in the endoscopy suite. MentalStatus Examination: [...] under direct vision. The Pediatric Colonoscope PCF-H190L [id number] was introducedthrough the anus and advanced to [...] 7:54 AM Procedure Code(s): --- Professional --- 95813, Colonoscopy, flexible; with removal of tumor(s), polyp(s), or other lesion(s) by snare technique --- Technical --- 83846, Colonoscopy, flexible; with removal of tumor(s), polyp(s), [...] colon K64.8, Other hemorrhoids CPT copyright 2020 [employer] [place] [employer]. All rights reserved. The codes documented in this report are preliminary and upon backwinder reviewmay be revised to meet current compliance requirements. Recognized by the [place] [employer]intestinal [employer] for promoting quality in endoscopy Benita Jay MD ENDOSCOPY PROCEDURES Final Resul t * HEPATITIS C SCREENING (02/02/2017) HEP C Normal Brian Ngo MD HEALTH MAINTENANCE Final Result * DEXA SCAN (2009) DEXA Scan Abnormal Comment:Osteopenia Historical Jeni OLMEDO HEALTH MAINTENANCE Final Result from Last 3 Months or Most Recently Relevant to Health Maintenance Insurance MEDICARE [facility] [employer] GENERIC [facility] MEDICARE Member Subscriber Plan / Payer (Ef fective 2018-Present) Name:Destiney Velasquez Member ID:[id number] Relation to Subscriber:Self Name:Destiney Velasquez Subscriber ID:[id number] Payer ID:[id number] Group ID:Not on file Type:MEDICARE [employer] Address: [facility] [address] [place] [address] [employer] Advance Directives For more information, please contact: [phone] * Full Code (Latest Code Status on File) Date Activated Date Inactivated Comments 04/03/2025 3:08 PM 04/04/2025 7:07 PM * Full Code Date Activated Date Inactivated Comments 11/03/2023 8:08 AM 11/03/2023 2:38 PM * Full Code Date Activated Date Inactivated Comments 11/03/2023 8:08 AM 11/03/2023 8:08 AM Care Teams Heel Shaper Relationship Specialty Start Date End Date Cornell Stoll MD [address] [place] [address] PCP - General 02/18/17 [place] [address] [place] [address] Consulting Physician General Surgery 04/04/25
--- OUTSIDE RECORDS SUMMARY | 2025-06-18 08:16 | XMS_ITS | Clinical Summary ---
Author Organization [facility] Address [address] [place] [address] Care Team Providers Care Supervisor Continuous [employer] Name Role Phone Cornell Stoll MD Primary Care Provider [phone] Source Comments [facility],non-owned Affiliates and Associated Physician Practices is amultiple site organization consisting of ambulatory clinics and hospital sitesin [place], [place], [place] and [place]. This disclosure is being madepursuant to the Care Everywhere program and may not contain all information available regarding this patient. Last updated 18.[facility] Allergies No known active allergies Medications * Be aware that medications may not be up to date on this document. Alwaysverify current medications with the patient. ezetimibe (Zetia) 10 MG tablet Take 1 (one) tablet by mouth once daily 11/28/2023 Active rosuvastatin (Crestor) 20 MG tablet Take 1 (one) tablet by mouth once daily 11/28/2023 Active aspirin (Aspirin) 81 MG chew tablet Take 1 (one) tablet by mouth once daily Active vitamin D, ergocalciferol, (Drisdol) 1.25 MG (68187 UT) capsule Take 1 (one) capsule by mouth every 7 days 11/28/2023 Active Active Problems Problem Noted Date Diagnosed Date Neck pain 10/27/2018 Fall 10/27/2018 Right elbow pain 10/27/2018 Closed wedge compression fracture of second lumb ar vertebra 10/27/2018 Acute midline low back pain without sciatica 05/2018 Immunizations Immunization Administration Dates Next Due INFLUENZA VACCINE, QUADR. (F LUZONE; FLULAVAL; FLUARIX; AFLURIA QUADRIVALENT; 6MO+), 0.5 ML (IIV4) 10/28/2018 Family History Medical History Relation Name Comments Alcohol abuse Brother CAD (Coronary Artery Disease) Father Hypertension Father Parkinson's Disease Mother CAD (Coronary Artery Disease) Sister Cataract Sister Hypertension Sister Relation Name Status Comments Brother Father Mother Sister Social History Tobacco Use Types Packs/Day Years Used Date Smoking Tobacco: Former Cigarettes Q uit: 1975 Smokeless Tobacco: Never Tobacco Cessation:Counseling Given: Not Answered Alcohol Use Standard Drinks/Week Comments Not Currently 0 (1 standard drink = 0.6 oz pur e alcohol) Sex and Gender Information Value Date Recorded Sex Assigned at Not on file Legal Sex Male 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 Gender Identity Not on file Sexual Orientation Not on file Last Filed Vital Signs Vital Sign Reading Time Taken Comments Blood Pressure 132/80 10/08/2024 9:17 AM BRANCH BILLING PAYROLL CLERK Pulse 68 10/08/2024 9:17 AM BRANCH BILLING PAYROLL CLERK Temperature 36.8 C (98.3 F) 10/30/2018 3:25 PM BRANCH BILLING PAYROLL CLERK Respiratory Rate 14 10/08/2024 9:17 AM BRANCH BILLING PAYROLL CLERK Oxygen Saturation 99% 10/08/2024 9:17 AM BRANCH BILLING PAYROLL CLERK Inhaled Oxygen Concentration - - Weight 79.4 kg (175 lb) 10/08/2024 9:17 AM BRANCH BILLING PAYROLL CLERK Height 175.3 cm (5' 9) 10/08/2024 9:17 AM BRANCH BILLING PAYROLL CLERK Body Mass Index 25.84 10/08/2024 9:17 AM BRANCH BILLING PAYROLL CLERK Plan of Treatment Health Maintenance Due Date Last Done Comments COLOGUARD (AGES 45-75) - COLON CA SCREENING 1953 CT COLONOGRAPHY - COLON CA SCREENING 1955 FIT - COLON CA SCREENING 1955 FLEX SIG - COLON CA SCREENING 1955 MEDICARE AWV 12 MONTHS 1953 HEPATITIS C SCREENING 07/10/1971 DTAP/TDAP/TD VACCINES (1 - Tdap) 1972 PNEUMOCOCCAL VACCINE 50+ (1 of 1 - PCV) 2003 ZOSTER VACCINE (1 of 2) 2003 Respiratory Syncytial Virus (RSV) Vaccine Pt: or over 60 yrs (1 - Risk 60-74 years 1-dose series) 2013 AAA SCREENING 2018 COVID-19 VACCINE ( season) 2024 DEPRESSION SCREENING 11/21/2024 INFLUENZA VACCINE (#1) 2025 8, 10/06/2017, 08/17/2016, Additional history exists SCREENING FOR DIABETES 08/24/2027 4, 08/24/2024, 02/10/2024, Additional history exists COLON MONITORING 11/03/2033 11/03/2023 COLONOSCOPY - COLON CA SCREENING 11/03/2033 11/03/2023 Colorectal Cancer Screening 11/03/2033 HEPATITIS B VACCINE Aged Out No longe r eligible based on patient's age to complete this topic HIB VACCINE Aged Out No longer eligi ble based on patient's age to complete this topic HPV VACCINE Aged Out No longer eligi ble based on patient's age to complete this topic MENINGOCOCCAL (Group B) VACCINE SHARED DECISION-MAKING Aged Out No longer eligible based on patient's age to complete this topic MENINGOCOCCAL GROUPS A/C/Y/W VACCINE Aged Out No longer eligible based on patient's age to complete this topic Medical Devices Implanted Type Area Risk Professional Device Identifier Shelf Expiration Date Model / Serial / Lot Graft Bone Grftn Dbm Plif 5x2.5cm - [id number] Implanted:Qty : 1 on 10/28/2018 by Vish Paredes II, MD at [facility] N/A: Spine Lumbar [employer] 03/14/2021 [id number] / [id number] / Solera Set Screw Implanted:Qty : 6 on 10/28/2018 by Vish Paredes II, MD at [facility] N/A: Spine Lumbar [id number] / / 5.5 X 40 Implanted:Qty : 4 on 10/28/2018 by Vish Paredes II, MD at [facility] N/A: Spine Lumbar [id number] / / 6.5 X 50 Implanted:Qty : 2 on 10/28/2018 by Vish Paredes II, MD at [facility] N/A: Spine Lumbar [id number] / / 80 Mm Nish Implanted:Qty : 2 on 10/28/2018 by Vish Paredes II, MD at [facility] N/A: Spine Lumbar [id number] / / 38 Mm Crosslink Implanted:Qty : 1 on 10/28/2018 by Vish Paredes II, MD at [facility] N/A: Spine Lumbar [id number] / / Procedures Procedure Name Priority Date/Time Associated Diagnosis Comments COMPREHENSIVE METABOLIC PANEL STAT 10/27/2018 1:14 PM BRANCH BILLING PAYROLL CLERK from Last 3 Months or Most Recently Relevant to Health Maintenance Results * (ABNORMAL) COMPREHENSIVE METABOLIC PANEL (10/27/2018 1:14 PM BRANCH BILLING PAYROLL CLERK) Glucose 122(H) 74 - 106 mg/dL 10/27/2018 1:37 PM BRANCH BILLING PAYROLL CLERK [facility] Sodium 137 136 - 145 mmol/L 10/27/2018 1:37 PM BRANCH BILLING PAYROLL CLERK [facility] Potassium 4.3 3.5 - 5.1 mmol/L 10/27/2018 1:37 PM BRANCH BILLING PAYROLL CLERK [facility] Chloride 106 98 - 107 mmol/L 10/27/2018 1:37 PM BRANCH BILLING PAYROLL CLERK [facility] CO2 27 22 - 31 mmol/L 10/27/2018 1:37 PM BRANCH BILLING PAYROLL CLERK [facility] Calcium 8.3(L) 8.5 - 10.1 mg/dL 10/27/2018 1:37 PM BRANCH BILLING PAYROLL CLERK [facility] Anion Gap 4(L) 8 - 16 mmol/L 10/27/2018 1:37 PM BRANCH BILLING PAYROLL CLERK [facility] BUN 19 7 - 21 mg/dL 10/27/2018 1:37 PM BRANCH BILLING PAYROLL CLERK [facility] Creatinine 1.00 0.50 - 1.30 mg/dL 10/27/2018 1:37 PM BRANCH BILLING PAYROLL CLERK [facility] Alkaline Phosphatase 53 38 - 126 U/L 10/27/2018 1:37 PM BRANCH BILLING PAYROLL CLERK [facility] ALT 26 13 - 61 U/L 10/27/2018 1:37 PM BRANCH BILLING PAYROLL CLERK [facility] AST 16 5 - 40 U/L 10/27/2018 1:37 PM BRANCH BILLING PAYROLL CLERK [facility] Protein Total 6.6 6.4 - 8.2 gm/dL 10/27/2018 1:37 PM BRANCH BILLING PAYROLL CLERK [facility] Albumin 3.3(L) 3.4 - 5.0 gm/dL 10/27/2018 1:37 PM BRANCH BILLING PAYROLL CLERK [facility] Bilirubin Total 0.5 0.2 - 1.0 mg/dL 10/27/2018 1:37 PM BRANCH BILLING PAYROLL CLERK [facility] eGFR by MDRD >60 >60 mL/min/1.7 3m2 10/27/2018 1:37 PM BRANCH BILLING PAYROLL CLERK [facility] eGFR by MDRD >60 >60 mL/min/1.7 3m2 10/27/2018 1:37 PM BRANCH BILLING PAYROLL CLERK [facility] Blood BLOOD SPECIMEN / Unknown Venipuncture / Unknown 10/27/2018 1:14 PM BRANCH BILLING PAYROLL CLERK 10/27/2018 1:18 PM BRANCH BILLING PAYROLL CLERK us Colby Kim MD LAB - CHEMISTRY ORDERABLES Fin al Result [facility] [address] [place] [address] from Last 3 Months or Most Recently Relevant to Health Maintenance Insurance MEDICARE [facility] [place] [id number] Advance Directives * Full Code (Latest Code Status on File) Date Activated Date Inactivated Comments 10/28/2018 4:49 PM 10/30/2018 6:31 PM * Full Code Date Activated Date Inactivated Comments 10/27/2018 5:21 PM 10/28/2018 4:49 PM Care Teams Supervisor [employer] Relationship Specialty Start Date End Date Cornell Stoll MD [address] [place] [address] PCP - General Internal Medicine 01/09/24
--- OUTSIDE RECORDS SUMMARY | 2025-06-18 08:16 | XMS_ITS | Encounter Summary ---
Author Organization [facility] Healthcare Address [address] [place] [address] Care Team Providers Care Nursing Department Chairperson Name Role Phone Cornell Stoll MD Primary Care Provider + Cornell Francis MD Unavailable [phone] Encounter Details Date Type Department Care Team (Late st Contact Info) Description 04/07/2020 Telephone [facility] [address] [facility] [address] Man Bess, RT Social History Tobacco Use Types Packs/Day Years Used Date Smoking Tobacco: Former Alcohol Use Standard Drinks/Week Comments No 0 (1 standard drink = 0.6 oz pur e alcohol) Sex and Gender Information Value Date Recorded Sex Assigned at Not on file Legal Sex Male 4:34 PM 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
--- OUTSIDE RECORDS SUMMARY | 2025-06-18 08:16 | XMS_ITS | Data Portability ---
Author Organization [facility], Primary Care Office Address [address] [place] [phone] Assessment No assessment recorded. Plan of Treatment Reminders Order Date Submit Date Provider Last Modified By Organization Details Last Modified Time Details Appointments None recorded. Lab None recorded. Referral None recorded. Procedures staple removal (PROC) 2022 023 [facility] Main Office, [address] [place] [address], [phone], 3 05:01:23 simple repair of superficial wounds of scalp, neck, axillae, external genitalia, trunk and/or extremities (including hands or feet) (PROC) 2022 023 [facility] Main Office, [address] [place] [address], [phone], 3 23:55:46 Surgeries None recorded. Imaging None recorded. Medication Orders Bactrim DS 800 mg-160 mg tablet 2022 023 [id number], [address], [place], [place], [id number], 3 18:35:16 Patient TargetsNo targets recorded. Patient Instructions Encounter Date Encounter Id Patient Instructions Last Modified By Organization Details Last Modified Time 04/08/2023 [id number] skin stitch aftercare instructions [email or web address] Not available 04/23/2023 22:52:47 Reason for Referral None Reported. Procedures Surgical History Date Name Laterality Status Provider Name and Address Organization Details Recorded Time 11/21/[address] NP, [address] [place] [address], [phone], [facility] 04/23/2023 22:20:54 11/21/19 [address] Surgery completed [address] NP, [address] [place], [address], [facility] 04/23/2023 22:20:15 11/21/18 98 Gallbladder Surgery completed Lizzy Way NP, [address] [place], [address], [employer] [facility] 04/23/2023 22:20:39 11/21/18 [address] NP, [address] [place], [address], [facility] 04/23/2023 22:20:00 Imaging Results None recorded. Procedure Notes None recorded. Medical Equipment None Reported. Medications Name Sig Start Date Stop Date Status Note LastModified by Organization Details LastModified Time atorvastatin 40 mg tablet active Not Available Not Available Not Available venlafaxine ER 75 mg capsule,extend ed release 24 hr TAKE 1 CAPSULE BY MOUTH EVERY MORNING active Not Available Not Available No t Available sulfamethoxazo le 800 mg-trimethopri m 160 mg tablet TAKE 1 TABLET BY MOUTH EVERY 12 HOURS FOR 7 DAYS active Not Available Not Available No t Available amoxicillin 875 mg tablet TAKE 1 TABLET BY MOUTH TWICE DAILY UNTIL ALL TAKEN active Not Available Not Available No t Available losartan 25 mg tablet TAKE 1 TABLET BY MOUTH EVERY DAY FOR HIGH BLOOD PRESSURE active Not Available Not Available No t Available aspirin 81 mg chewable tablet CHEW AND SWALLOW 1 TABLET BY MOUTH EVERY DAY active Not Available Not Available No t Available fluoxetine 20 mg capsule TAKE 2 CAPSULES BY MOUTH EVERY DAY DIRECTED active Not Available Not Available No t Available ezetimibe 10 mg tablet TAKE 1 TABLET BY MOUTH AT NIGHT active Not Available Not Available No t Available atomoxetine 80 mg capsule TAKE 1 CAPSULE BY MOUTH EVERY MORNING active Not Available Not Available No t Available Vitals Date Recorded Heart rate Respiratory rate Body temperature Oxygen saturation Oxygen saturation in Arterial blood by Pulse oximetry Systolic And Diastolic Provider Name and Address Organization Details Last Updated DateTime 3 76 /min 20 /min 98.9 [degF] 95 % 95 % 140/75 mm[Hg] Lizzy Way NP, [address] [place], [address], [facility] 3 22:18:39 Date Recorded Heart rate Respiratory rate Body temperature Oxygen saturation Oxygen saturation in Arterial blood by Pulse oximetry Systolic And Diastolic Provider Name and Address Organization Details Last Updated DateTime 3 80 /min 20 /min 98.2 [degF] 98 % 98 % 130/80 mm[Hg] Lizzy Way NP, [address] [place], [address], [facility] 3 00:00:02 Social History None recorded. Functional Status None recorded. Mental Status None recorded. Family History Relationship Description Onset Age of this Age Resolved Age Notes LastModified by Organization Details LastModified Time Father No current problems or disability [email or web address] Not available 04/23 22:19:25 Mother No current problems or disability [email or web address] Not available 04/23 22:19:25 Medical History Condition Response Coronary Artery Disease N Other N Gout N Blood Diseases N Kidney Stones N Hyperthyroidism N Blood Transfusion N Breast Cancer N Lung Disease N COPD N Depression Y Hypothyroidism N Defects or Inherited Disease N Developmental or Behavioral Disorders N Breast Problem N Difficulty Swallowing N Anesthesia Complications N Meniere's disease N Anxiety Disorder N Muscle, Joint, or Bone Problems N Obesity N Vision or Eye Problems N Arthritis N Polyps N Infertility N Mental Disorder N Cancer Y Stroke N Varicosities N Endometriosis N Bladder or Kidney Problems N High Cholesterol Y Liver Disease N Fibromyalgia N Headaches N Kidney Disease N Allergies/Hayfever N Heart Problems N Ear or Hearing Problems N Hospitalizations N Thyroid Problems N GI Problems N ADD/ADHD N Eating Disorder N Skin Problems N Anemia N MRSA exposure N Constipation N Mental Illness N Diabetes N Ovarian Cancer N Bedwetting N Seizures/Epilepsy N Tuberculosis N AIDS/HIV N Congestive Heart Failure (CHF) N Eczema N Abuse/Domestic Violence N Diverticulitis N Asthma N Reflux/GERD N Hepatitis N Heart Disease N Pulmonary Embolism N Chronic Ear Infections N Pre-Eclampsia N Hypertension N Chicken Pox N Autism Spectrum Disorder (ASD) N Osteoporosis N Thrombophilias N Past Encounters Encounter ID Performer Location Encounter Start Date Encounter Closed Date Diagnosis/Indication Diagnosis SNOMED-CT Code Diagnosis ICD10 Code Diagnosis Note [id number] Ellen Beal MD Main Office [address] [place] [address] 04/08/2023 16:56:53 04/23/2023 22:51:06 Injury of head 22568716 S09.90XA Open wound [id number] T14 .8XXA Cut of scalp 862823781 S 01.01XA Active or passive immunization [id number] Z23 [id number] Ellen Beal MD Main Office [address] [place] [address] 04/23/2023 13:40:19 04/24/2023 00:02:51 Cut of scalp 724574066 S01.01XA Health Concerns Section Related Observation LastModified by Organization Detai ls LastModified Time None Recorded Concern Status LastModified by Organization Details LastModified Time None Recorded Advance Directives Directive None Recorded Payers Insurance Date Sequence Insurance Name Policy Number Policy [place] Covered Member ID [place] Member ID Guarantor Name 04/24/2023 1 [place] Francois [id number] James Francois 04/23/2023 2 [place] [id number] James Francois 04/23/2023 1 [place] Franc[place] [id number] James Francois
[2025-06-18 08:23] VITALS: BP 159/92; PULSE 63; RESP 18; TEMP 36.4; O2SAT 99
--- NOTE | 2025-06-18 08:26 | ECG_ITS ---
Test Date: 2025-06-18 08:30:31 Measurements Intervals [place] Rate: 61 P: 40 IN: 134 QRS: 28 QRSD: 87 T: 58 QT: 407 QTc: 410 Interpretive Statements SINUS RHYTHM No previous ECG available for comparison Electronically Signed On 06-18-2025 17:24:36 CDT by Bar Kaur D.O
== END 2025-06-18 08:55 | disposition short-term general hospital (02) ==
PROVIDERS: Emergency Provider Nurse Practitioner; PCP Internal Medicine
DX: R42 Dizziness and giddiness (principal); R51.9 Headache, unspecified; R11.0 Nausea; I10 Essential (primary) hypertension
CPT/HCPCS: 93005; 99213; G0463

== ENCOUNTER 2025-10-11 12:58 | Outpatient (CLI) | payer MEDICARE, OTHER, SELFPAY ==
--- NOTE | ~2025-10-11 | PE_ITS ---
EXAMINATION: PET_PETPSMAST_PT DATE: 10/11/2025 14:59 INDICATION: Prostate cancer TECHNIQUE: 4.41 mCi of Illucix Ga-68([id number]) was administered i.v. Low dose computed tomography (CT) images were acquired from the base of the brain to the base of the brain to the proximal thighs for attenuation correction and anatomic localization. Positron emission tomography (PET) images were acquired in the same distribution beginning 66 minutes after injection. Images including fused PET/CT images were reconstructed in axial, coronal, and sagittal planes. Automated exposure control technique was employed. The dose-length product was 98770.00mGy-cm. COMPARISON: None FINDINGS: Head/neck: Typical pattern of symmetric physiologic increased activity in the lacrimal, parotid and submandibular glands as well as along the mucosa of the nasal and oral cavities, pharynx and hypopharynx. No pathologically enlarged cervical lymphadenopathy or suspicious foci of increased uptake in the visualized head or neck. Chest: Mild dependent atelectasis in both lungs. No suspicious pulmonary nodules, pneumonia, pulmonary edema or pleural effusion. Heart size is normal. No pericardial effusion. Dual-lead cardiac pacemaker with and one lead tip at the inferior cavoatrial junction and the second lead tip at the pulmonary outflow tract. Thoracic aorta is normal in caliber. No pathologically enlarged or PSMA avid thoracic lymphadenopathy. Abdomen/pelvis/proximal thighs: Physiologic renal accumulation and excretion of activity in the kidneys, bladder and along portions of ureters. Photopenic defect associated with a 2.5 cm low- attenuation left parapelvic cyst. Status post prostatectomy. Caudal to the bladder there is a subcentimeter focus of increased uptake with maximal SUV of 32.5 along the course of the urethra and favor urine activity over residual disease. Additional tiny focus of likely urinary activity with maximal SUV of 7.1 at the urethral meatus. Moderate-sized fat-containing left inguinal hernia. Normal degree and slightly heterogenous pattern of increased uptake throughout the liver and spleen without radiologic correlate or dominant PSMA avid lesion. Cholecystectomy clips at the gallbladder fossa. The pancreas and bilateral adrenal glands are normal. Moderate uptake scattered throughout the bowels with typical duodenal and proximal jejunal predominance and without radiologic correlate, also likely physiologic. Normal appendix. No other abnormal foci of increased uptake or pathologically enlarged lymphadenopathy in the abdomen, pelvis or proximal thighs. Musculoskeletal: L2 compression fracture spanned by an L1-L3 posterior spinal fusion with bilateral vertical aguila and pedicle screw fixation. No suspicious lytic, blastic or abnormally PSMA avid bone lesions. IMPRESSION: 1. Status post prostatectomy with small focus of relatively intense activity centrally in the region of the prostatectomy bed with the location and relative high intensity disproportionate to the size of lesion suggesting this represents excreted urine activity in the urethra with additional small amount of activity more distally at the urethral meatus. No other osseous lesion suspicious for metastatic disease. Reviewed, dictated and finalized at location A. OVEMENT LEAD IMPRESSION: 1. Status post prostatectomy with small focus of relatively intense activity ce ntrally in the region of the prostatectomy bed with the location and relative h igh intensity disproportionate to the size of lesion suggesting this represents excreted urine activity in the urethra with additional small amount of activit y more distally at the urethral meatus. No other osseous lesion suspicious for metastatic disease.
--- OUTSIDE RECORDS SUMMARY | 2025-10-11 13:02 | XMS_ITS | Encounter Summary ---
Author Organization [facility] Address [address] [facility] [place] [address] Care Team Providers Care Pastry Wrapper Name Role Phone Cornell Stoll MD Primary Care Provider [phone] [phone] Encounter Details Date Type Department Care Team (Late st Contact Info) Description 10/23/2021 Lab Requisition [facility] [address] [facility], [place] [id number] Say Shannon MD [address] [place] [address] Social History Tobacco Use Types Packs/Day Years Used Date Smoking Tobacco: Never Smokeless Tobacco: Never Alcohol Use Standard Drinks/Week Comments No 0 (1 standard drink = 0.6 oz pur e alcohol) Sex and Gender Information Value Date Recorded Sex Assigned at Not on file Legal Sex Male 5:25 PM THIOKOL OPERATOR Gender Identity Not on file Sexual Orientation [...] Comments DERMATOPATHOLOGY Routine 10/21/2021 12:0 0 AM THIOKOL OPERATOR documented in this encounter Results * DERMATOPATHOLOGY (10/21/2021 12:00 AM THIOKOL OPERATOR) Case Report Dermatopathology Report Case: [id number] Authorizing Provider: Say Shannon MD Collected: 10/21/2021 12:00 AM Ordering Location: [facility] Lab Received: 10/23/2021 01:27 PM Pathologist: Elizabeth Kim MD Specimens: A) - Skin, doral left hand B) - Skin, dorsal left hand proximal to middle MCP joint 4:21 PM [facility] DERMATOPATHOLOGY LABORATORY Final Diagnosis Specimen A. SKIN, doral left hand: HYPERPLASTIC (HYPERTROPHIC) ACTINIC KERATOSIS, INFLAMED (L57.0) (see microscopic description) Specimen B. SKIN, dorsal left hand proximal to middle MCP joint: HYPERPLASTIC (HYPERTROPHIC) ACTINIC KERATOSIS (L57.0) (see microscopic description) 4:21 PM [facility] DERMATOPATHOLOGY [facility]ORATORY at [address] [facility] Clinical History A-B: R/O SCC. 4:21 PM [facility] DERMATOPATHOLOGY LABORATORY Gross Description Specimen A: Received is one formalin filled container labeled with the patient's name and designated doral left hand. The specimen consists of a curettage and desiccation biopsy measuring [id number]. Jar 0. Specimen B: Received is one formalin filled container labeled with the patient's name and designated dorsal left hand proximal to middle MCP joint. The specimen consists of a curettage and desiccation biopsy measuring [id number]. Jar 0. 1 4:21 PM [facility] DERMATOPATHOLOGY LABORATORY Microscopic Description Specimen [...] of the lesion is seen. 4:21 PM [facility] DERMATOPATHOLOGY [facility]ORATORY Disclaimer An external and internal positive and negative controls are appropriate for the histochemical, immunohistochemical and immunofluorescence stain(s) in this case (if any), except where stated explicitly. The performance characteristics of the stain(s) cited in this report were developed and its performance characteristic determined by the Dermatopathology Laboratory at [facility], directed by Dr. Vin Terrazas. These tests need not be, and therefore are not, approved by the [place] Food and Drug Administration. The tests are used for clinical purposes. Billing Codes Specimen Charges Stain Charges 19882 55947 1 1 1 4:21 PM THIOKOL OPERATOR DERMATOPATHOLOGY LABORATORY Embedded Images 4:21 PM [facility] DERMATOPATHOLOGY [facility]ORATORY Pathology/Cytology TISSUE SPECIMEN FROM SKIN / Unknown 10/21/2021 10/23/2021 1:27 PM THIOKOL OPERATOR Miscellaneous samples (specimen) TISSUE SPECIMEN FROM SKIN / Unknown 10/21/2021 10/23/2021 1:27 PM THIOKOL OPERATOR us Say Shannon MD LAB - PATHOLOGY/CYTOLOGY ORD ERABLES Final Result DERMATOPATHOLOGY LABORATORY [facility] - Department of Dermatology [address], [address] [place] [address], [facility] [phone] documented in this encounter Visit Diagnoses Not on filedocumented in this encounter Care Teams Pastry Wrapper Relationship Specialty Start Date End Date Cornell Stoll MD [address] [place] [address] PCP - General Internal Medicine 01/09/24 documented as of this encounter
--- OUTSIDE RECORDS SUMMARY | 2025-10-11 13:02 | XMS_ITS | Encounter Summary ---
Author Organization [facility] Healthcare Address [address] [place] [address] Care Team Providers Care Horticulturalist Name Role Phone Cornell Stoll MD Primary Care Provider + Cornell Francis MD Unavailable [phone] Encounter Details Date Type Department Care Team (Late st Contact Info) Description 04/07/2020 Telephone [facility] [address] [place] [address] Man Bess, RT Social History Tobacco Use Types Packs/Day Years Used Date Smoking Tobacco: Former Alcohol Use Standard Drinks/Week Comments No 0 (1 standard drink = 0.6 oz pur e alcohol) Sex and Gender Information Value Date Recorded Sex Assigned at Not on file Legal Sex Male 4:34 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
--- OUTSIDE RECORDS SUMMARY | 2025-10-11 13:02 | XMS_ITS | Clinical Summary ---
Author Organization [facility] Address [address] [place] [address] Phone Care Team Providers Care Guest Request Runner Name Role Phone Unavailable Primary Care Provider [...] MG PO TABS Take by mouth. Active Solzn-5-ilwn Ethyl Esters (LOVAZA) 1 G PO CAPS [...] Virus (HCV) Screening 1953 TdaP Immunization 1953 Varicella Immunization (1 of 2 - 13+ 2-dose series) 1966 Cologuard 1998 Colonoscopy 1998 Colorectal Cancer Screening 1998 Immunochemical Fecal Occult Blood 1998 Pneumococcal Immunization (5 0+ years) (1 of 1 - PCV) 2003 Zoster Immunization (1 of 2) 2003 Medicare Initial AWV [id number] 06/21/2019 Influenza Immunization (#1) 07/22/202509/21, 08/17/2016, 12/16/2015 SARS-COV-2 Immunization ( - 2024- season) 2025 09/14/2021, 02/14/2021, 01/16/2021 Respiratory Syncytial Virus (RSV) Immunization (Adult) (1 [...]
--- OUTSIDE RECORDS SUMMARY | 2025-10-11 13:02 | XMS_ITS | Encounter Summary ---
Author Organization [facility] Address [address] [facility] [place] [address] Care Team Providers Care Geospatial Systems Integrator Name Role Phone Cornell Stoll MD Primary Care Provider [phone] Encounter Details Date Type Department Care Team (Late st Contact Info) Description 08/05/2021 Lab Requisition [facility] [address] 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 DermPath Lab Received: 08/05/2021 12:52 PM Pathologist: [...] specimen consists of a shave removal measuring [id number]. Jar 0. 1 2:02 PM CDT DERMATOPATHOLOGY [...] determined by the Dermatopathology Laboratory at [facility], directed by Dr. Vin Terrazas. These tests need not be, and therefore are not, approved by the [place] Food and Drug Administration. The tests are used for clinical purposes. Billing Codes Specimen Charges Stain Charges 39140 1 1 2:02 PM CDT DERMATOPATHOLOGY LABORATORY Embedded Images 1 2:02 PM CDT DERMATOPATHOLOGY LABORATORY Pathology/Cytolog y TISSUE SPECIMEN FROM SKIN / Unknown 08/04/2021 08/05/2021 12:52 PM CDT Say Shannon MD LAB - PATHOLOGY/CYTOLOGY ORD ERABLES Final Result DERMATOPATHOLOGY LABORATORY [facility] - Department of Dermatology [facility] Specialized Medicine [address] [place] [address], [address] [phone] documented in this encounter Visit Diagnoses Not on filedocumented in this encounter Care Teams Geospatial Systems Integrator Relationship Specialty Start Date End Date Cornell Stoll MD [address] [place] [address] PCP - General Internal Medicine 01/09/24 documented as of this encounter
--- OUTSIDE RECORDS SUMMARY | 2025-10-11 13:02 | XMS_ITS | Encounter Summary ---
Author Organization [facility] Healthcare Address [address] [place] [address] Care Team Providers Care Grass Farm Laborer Name Role Phone Cornell Stoll MD Primary Care Provider + Cornell Francis MD Unavailable [phone] Reason for Referral * MRI/CAT/PET Scan (Routine) - Closed Specialty Diagnoses / Procedures Referred By Oriana alexandre Referred To Contact Radiology Diagnoses Malignant neoplasm of prostate (HCC) Procedures MRI PELVIS PROSTATE W WO CONTRAST Marco A Childs MD Phone: tel: fax: [address] [address] Referral ID Status Reason Start Date Expiration Date Visits Re quested Visits Authorized [id number] Closed 03/08/2024 04/07/2025 1 1 Encounter Details Date Type Department Care Team (Late st Contact Info) Description 03/08/2024 Community Orders [facility] Epic[place] [address] [place] [address] Malignant neoplasm of prostate (HCC) (Primary Dx) [...] on file Legal Sex Male 4:34 PM DESK DIRECTOR Gender Identity Male 10/31/2020 11:25 AM DESK DIRECTOR Sexual Orientation Straight 04/18/2020 2: 27 PM [...] Bruno Cochran M.D. Marco A Childs MD IM MRI PROCEDURES F inal Result documented in this encounter Visit Diagnoses Diagnosis Malignant neoplasm of prostate (HCC)- Primary Malignant neoplasm of prostate Malignant neoplasm of prostate (HCC) Malignant neoplasm of prostate documented in this encounter Care Teams Grass Farm Laborer Relationship Specialty Start Date End Date Cornell Stoll MD [address] [facility] [place] [address] PCP - General 02/18/17 [place] [address] [place] [address] Consulting Physician General Surgery 04/04/25 documented as of this encounter
--- OUTSIDE RECORDS SUMMARY | 2025-10-11 13:02 | XMS_ITS | Encounter Summary ---
Author Organization [facility] Health Address [address] [place] [address] Care Team Providers Care Charger Tester Name Role Phone Cornell Stoll MD Primary Care Provider [phone] Encounter Details Date Type Department Care Team (Late st Contact Info) Description 02/12/2019 [facility] Outpatient Visit EXTERNAL NON-[facility] DEPT Unknown, Provider Social History Tobacco Use Types Packs/Day Years Used Date Smoking Tobacco: Never Smokeless Tobacco: Never Alcohol Use Standard Drinks/Week Comments No 0 (1 standard drink = 0.6 oz pur e alcohol) Sex and Gender Information Value Date Recorded Sex Assigned at Not on file Legal Sex Male 5:25 PM 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
--- OUTSIDE RECORDS SUMMARY | 2025-10-11 13:02 | XMS_ITS | Encounter Summary ---
Author Organization [facility] Address [address] [facility] [place] [address] Care Team Providers Care Managing Supervisor Name Role Phone Cornell Stoll MD Primary Care Provider [phone] Encounter Details Date Type Department Care Team (Late st Contact Info) Description 02/14/2019 Lab Requisition [facility] [address] [facility] [place] [address] Say Shannon MD [address] [place] [address] Social History Tobacco Use Types Packs/Day Years Used Date Smoking Tobacco: Never Smokeless Tobacco: Never Alcohol Use Standard Drinks/Week Comments No 0 (1 standard drink = 0.6 oz pur e alcohol) Sex and Gender Information Value Date Recorded Sex Assigned at Not on file Legal Sex Male 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 Previous Bx: [id number]. Check margins. 9 1:10 PM CDT DERMATOPATHOLOGY LABORATORY Gross Description Specimen A: Received is one formalin filled container labeled with the patient's name and designated above left elbow laterally.The specimen consists of an ellipse measuring [id number] and is oriented with the notch at [...] characteristic determined by the Dermatopathology Laboratory at [facility], directed by Dr. Vin Terrazas. These tests need not be, and therefore are not, approved by the [place] Food and Drug Administration. The tests are used for clinical purposes. Billing Codes Specimen Charges Stain Charges 46569 1 9 1:10 PM CDT DERMATOPATHOLOGY LABORATORY Embedded Images 9 1:10 PM CDT DERMATOPATHOLOGY LABORATORY Pathology/Cytolog y TISSUE SPECIMEN FROM SKIN / Unknown 02/13/2019 02/14/2019 11:31 AM CDT Say Shannon MD LAB - PATHOLOGY/CYTOLOGY ORD ERABLES Final Result DERMATOPATHOLOGY LABORATORY [facility] - Department of Dermatology [address] [place] [address] 5th Floor Lab [address] [phone] documented in this encounter Visit Diagnoses Not on filedocumented in this encounter Care Teams Managing Supervisor Relationship Specialty Start Date End Date Cornell Stoll MD [address] [place] [address] PCP - General Internal Medicine 01/09/24 documented as of this encounter
--- OUTSIDE RECORDS SUMMARY | 2025-10-11 13:02 | XMS_ITS | Clinical Summary ---
Author Organization [facility] Address [address] [facility] [place] [address] Care Team Providers Care Environmental Protection Specialist Name Role Phone Cornell Stoll MD Primary Care Provider [phone] Source Comments [facility],non-owned Affiliates and Associated Physician Practices is amultiple site organization consisting of ambulatory clinics and hospital sitesin [place], [place], [place] and [place]. This disclosure is being madepursuant to the Care Everywhere program and may not contain all information available regarding this patient. Last updated 18.[facility] Allergies No known active allergies Medications * [...] Active vitamin D, ergocalciferol, (Drisdol) 1.25 MG (07490 UT) capsule Take 1 (one) capsule by [...] Years Used Date Smoking Tobacco: Former Cigarettes 0 Q uit: 1975 Smokeless Tobacco: Never Tobacco Cessation:Counseling Given: Not Answered Alcohol Use Standard Drinks/Week Comments Not Currently 0 (1 standard drink = 0.6 oz pur e alcohol) Sex and Gender Information Value Date Recorded Sex Assigned at Not on file Legal Sex Male 5:25 PM BRIM SETTER Gender Identity Not on file Sexual Orientation Not on file Last Filed Vital Signs Vital Sign Reading Time Taken Comments Blood Pressure 132/80 10/08/2024 9:17 AM BRIM SETTER Pulse 68 10/08/2024 9:17 AM BRIM SETTER Temperature 36.8 C (98.3 F) 10/30/2018 3:25 PM BRIM SETTER Respiratory Rate 14 10/08/2024 9:17 AM BRIM SETTER Oxygen Saturation 99% 10/08/2024 9:17 AM BRIM SETTER Inhaled Oxygen Concentration - - Weight 79.4 kg (175 lb) 10/08/2024 9:17 AM BRIM SETTER Height 175.3 cm (5' 9) 10/08/2024 9:17 AM BRIM SETTER Body Mass Index 25.84 10/08/2024 9:17 AM BRIM SETTER Plan of Treatment Health Maintenance Due Date Last Done Comments COLOGUARD (AGES 45-75) - COLON CA SCREENING 1953 CT COLONOGRAPHY - COLON CA SCREENING 1953 FIT - COLON CA SCREENING 1953 FLEX SIG - COLON CA SCREENING 1955 MEDICARE AWV 12 MONTHS 1953 HEPATITIS C SCREENING 07/10/1971 DTAP/TDAP/TD VACCINES (1 - Tdap) 1972 PNEUMOCOCCAL VACCINE 50+ (1 of 1 - PCV) 2003 Respiratory Syncytial Virus (RSV) Vaccine Pt: or over 60 yrs (1 - Risk 50-74 years 1-dose series) 2003 ZOSTER VACCINE (1 of 2) 2003 AAA SCREENING 2018 SCREENING FOR DIABETES 01/09/2024 10/27/2018 DEPRESSION SCREENING 11/21/2024 COVID-19 VACCINE ( - season) 2025 INFLUENZA VACCINE (#1) 2025 8, 10/06/2017, 08/17/2016, Additional history exists COLON MONITORING 11/03/2033 11/03/2023 [...] this topic Medical Devices Implanted Type Area Communication Equipment Mechanic Device Identifier Shelf Expiration Date Model / Serial / Lot Graft Bone Grftn Dbm Plif 5x2.5cm - [id number] Implanted:Qty : 1 on 10/28/2018 by Vish Paredes II, MD at [facility] N/A: Spine Lumbar [employer] 03/14/2021 [id number] / [id number] / Solera Set Screw Implanted:Qty : 6 on 10/28/2018 by Vish Paredes II, MD at [facility] N/A: Spine Lumbar [id number] / / 5.5 X 40 Implanted:Qty : 4 on 10/28/2018 by Vish Paredes II, MD at [facility] N/A: Spine Lumbar [id number] / / 6.5 X 50 Implanted:Qty : 2 on 10/28/2018 by Vish Paredes II, MD at [facility] N/A: Spine Lumbar [id number] / / 80 Mm Nish Implanted:Qty : 2 on 10/28/2018 by Vish Paredes II, MD at [facility] N/A: Spine Lumbar [id number] / / 38 Mm Crosslink Implanted:Qty : 1 on 10/28/2018 by Vish Paredes II, MD at [facility] N/A: Spine Lumbar [id number] / / Procedures Procedure Name Priority Date/Time Associated Diagnosis Comments COMPREHENSIVE METABOLIC PANEL STAT 10/27/2018 1:14 PM BRIM SETTER from Last 3 Months or Most Recently Relevant to Health Maintenance Results * (ABNORMAL) COMPREHENSIVE METABOLIC PANEL (10/27/2018 1:14 PM BRIM SETTER) Glucose 122(H) 74 - 106 mg/dL 10/27/2018 1:37 PM BRIM SETTER [facility] Sodium 137 136 - 145 mmol/L 10/27/2018 1:37 PM BRIM SETTER [facility] Potassium 4.3 3.5 - 5.1 mmol/L 10/27/2018 1:37 PM BRIM SETTER [facility] Chloride 106 98 - 107 mmol/L 10/27/2018 1:37 PM BRIM SETTER [facility] CO2 27 22 - 31 mmol/L 10/27/2018 1:37 PM BRIM SETTER [facility] Calcium 8.3(L) 8.5 - 10.1 mg/dL 10/27/2018 1:37 PM BRIM SETTER [facility] Anion Gap 4(L) 8 - 16 mmol/L 10/27/2018 1:37 PM BRIM SETTER [facility] BUN 19 7 - 21 mg/dL 10/27/2018 1:37 PM BRIM SETTER [facility] Creatinine 1.00 0.50 - 1.30 mg/dL 10/27/2018 1:37 PM BRIM SETTER [facility] Alkaline Phosphatase 53 38 - 126 U/L 10/27/2018 1:37 PM BRIM SETTER [facility] ALT 26 13 - 61 U/L 10/27/2018 1:37 PM BRIM SETTER [facility] AST 16 5 - 40 U/L 10/27/2018 1:37 PM BRIM SETTER [facility] Protein Total 6.6 6.4 - 8.2 gm/dL 10/27/2018 1:37 PM BRIM SETTER [facility] Albumin 3.3(L) 3.4 - 5.0 gm/dL 10/27/2018 1:37 PM BRIM SETTER [facility] Bilirubin Total 0.5 0.2 - 1.0 mg/dL 10/27/2018 1:37 PM BRIM SETTER [facility] eGFR by MDRD >60 >60 mL/min/1.7 3m2 10/27/2018 1:37 PM BRIM SETTER [facility] eGFR by MDRD >60 >60 mL/min/1.7 3m2 10/27/2018 1:37 PM BRIM SETTER [facility] Blood BLOOD SPECIMEN / Unknown Venipuncture / Unknown 10/27/2018 1:14 PM BRIM SETTER 10/27/2018 1:18 PM BRIM SETTER us Colby Kim MD LAB - CHEMISTRY ORDERABLES Fin al Result [facility] [address] [place] [address] from Last 3 Months or Most Recently Relevant to Health Maintenance Insurance MEDICARE [facility] MEDICARE [facility] Advance Directives * Full Code (Latest Code Status on File) Date Activated Date Inactivated Comments 10/28/2018 4:49 PM 10/30/2018 6:31 PM * Full Code Date Activated Date Inactivated Comments 10/27/2018 5:21 PM 10/28/2018 4:49 PM Care Teams Environmental Protection Specialist Relationship Specialty Start Date End Date Cornell Stoll MD [address] [place] [address] PCP - General Internal Medicine 01/09/24
--- OUTSIDE RECORDS SUMMARY | 2025-10-11 13:02 | XMS_ITS | Clinical Summary ---
Author Organization 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 06/18/2025 Malignant neoplasm of prostate 03/05/2025 Abnormal computed tomography of bladder 05/09/20 24 Syncope and collapse 12/05/2023 Encounter for screening colonoscopy 08/16/2023 Lesion of bladder 04/22/2020 Overview (04/22/2020): Added automatically from request for surgery [id number] Enlarged prostate 04/21/2020 Overview (04/21/2020): Added automatically from request for surgery [id number] Elevated PSA 04/21/2020 Overview (04/21/2020): Added automatically from request for surgery [id number] Healthcare maintenance 08/18/2017 Medication management 08/18/2017 Attention deficit disorder (ADD) without hyperac tivity 12/16/2015 Overview (02/25/2017): ADD Hyperlipidemia 12/16/2015 Overview (02/25/2017): Hyperlipidemia Hypogonadism in male 04/06/2014 Overview (02/24/2017): Hypogonadism male Vitamin D deficiency 08/16/2012 Overview (02/24/2017): Vitamin D deficiency Encounters Date Type Department Care Team Description 08/15/2025 7:30 AM CDT Anesthesia Event [facility] Operating Room [address] [place] [address] Faheem Head, DO Goff, Rm García MD 08/15/2025 5:49 AM CDT - 08/15/2025 7:30 AM CDT Hospital Encounter [facility] Operating Room [address] [place] [address] Marco A Childs MD Discharge Disposition: Discharge to home or self care 08/10/2025 8:45 AM CDT Lab [facility] [address] [place] [address] 07/25/2025 Results Follow-Up [facility] [address] [place] [id number] 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 ER Visit03/09/13 VASECTOMY 11/21/1986 - 11/20/1987 BACK [...] Not Answered Alcohol Use Standard Drinks/Week Comments Never 0 (1 standard drink = 0.6 oz pur e alcohol) [facility] Utilities Answer Date Recorded In the past 12 months has e [place] [place] [employer], gas, oil, or water [employer] threatened to shut off services in your home? No 06/20/2025 Social Connection and Isolation Panel Answer Date Recorded In a typical week, how many times do you talk on the phone with family, friends, or neighbors? More than three times a week 06/20/2025 How often do you get togethe r with friends or relatives? Three times a week 06/20/2025 How often do you attend chur ch or christianity services? More than 4 times per year 06/20/2025 Do you belong to any clubs o r organizations such as restoration groups, unions, fraternal or athletic groups, or school groups? Yes 06/20/2025 How often do you attend meet ings of the clubs or organizations you belong to? More than 4 times per year 06/20/2025 Are you , , di vorced, , never , or living with a partner? 06/20/2025 Overall Financial Resource Strain (CARDIA) Answe r Date Recorded How hard is it for you to pa y for the very basics like food, housing, medical care, and heating? Not hard at all 06/20/2025 Hunger Vital Sign Answer Date Recorded Within the past 12 months, y ou worried that your food would run out before you got the money to buy more. Never true 06/20/20 25 Within the past 12 months, t he food you bought just didn't last and you didn't have money to get more. Never true 06/20/2025 PRAPARE - Transportation Answer Date Re corded In the past 12 months, has l ack of transportation kept you from medical appointments or from getting medications? No 05/23 In the past 12 months, has l ack of transportation kept you from meetings, work, or from getting things needed for daily living? No 06/20/2025 Housing Stability Vital Sign Answer Christopher e Recorded In the last 12 months, was t here a time when you were not able to pay the mortgage or rent on time? No 06/20/2025 In the past 12 months, how m any times have you moved where you were living? 0 06/20/2025 At any time in the past 12 m [facility], were you homeless or living in a prison (including now)? No 06/20/2025 AUDIT-C Answer Date Recorded Q1: How often do you have a drink containing alcohol? Never 08/15/2025 Q2: How many drinks containi ng alcohol do you have on a typical day when you are drinking? Patient does not drink Q3: How often do you have si x or more drinks on one occasion? Never 08/15/2025 Personal Safety Answer Date Recorded Have you ever been in or are you currently in a harmful physical or emotional relationship or is someone making you feel afraid or unsafe? Denies 08/15/2025 Sex and Gender Information Value Date Recorded Sex Assigned at Not on file Legal Sex Male 4:34 PM ICE HANDLER Gender Identity Male 10/31/2020 11:25 AM ICE HANDLER Sexual Orientation Straight 04/18/2020 2: 27 PM CDT Last Filed Vital Signs Vital Sign Reading Time Taken Comments Blood Pressure 141/81 08/15/2025 6:20 AM CDT Pulse 52 08/15/2025 6:20 AM CDT Temperature 36 C (96.8 F) 08/15/2025 6:20 AM CDT Respiratory Rate 18 08/15/2025 6:20 AM CDT Oxygen Saturation 99% 08/15/2025 6:20 AM CDT Inhaled Oxygen Concentration - - Weight 72.7 kg (160 lb 4.4 oz) 08/15/2025 6:20 A M CDT Height 175.3 cm (5' 9) 08/15/2025 6:20 AM CDT Body Mass Index 23.67 08/15/2025 6:20 AM CDT Plan of Treatment Health Maintenance [...] 01/24/2023, Additional history exists Fall Risk Assessment 06/21/2026 06/21/2025, 05/09/20 Colon Cancer Screening-Colonoscopy 11/03/2033 11/03/2023, 07/31/2013, 07/31/2013 Hepatitis C Screening Completed 02/02/2017 Abdominal Aortic Aneurysm (A AA) Screen Completed 10/27/2018 Colon Cancer Screening-CT Colonography Discontinued 11/03/2023, 07/31/2013, 07/31/2013 Colon Cancer Screening-DNA Stool Discontinued 11/03/2023, 07/31/2013, 07/31/2013 Colon Cancer Screening-FIT Discontinued 11/03, 07/31/2013, 07/31/2013 Colon Cancer Screening-Sigmoidoscopy Discontinued 11/03/2023, 07/31/2013, 07/31/2013 Medical Devices Implanted Type Area Food And Nutrition Professor Device Identifier Shelf Expiration Date Model / Serial / Lot Biotronik Lead Lead Heart Biotronik [id number] / / Biotronik Lead Lead Heart Biotronik [id number] / / Biotronik [place] 8-08/27/2024 Implanted:05/2024 (Quantity not on file) Pacemaker Left: Chest [id number] / / L1-L3 Fusion N/A: Spine Lumbar Explanted Type Area Food And Nutrition Professor Device Identifier Shelf Expiration Date Model / Serial / Lot Implantable Loop Recorder-2021 Implanted:04/22 by Jesus Lau MD (Quantity not on file) Implantable Loop Recorder N/A: Chest Biotronik BIOMONITOR IIIM / [id number] / Procedures Procedure Name Priority Date/Time Associated Diagnosis Comments ECG 12-LEAD Routine 08/15/2025 6:33 AM CDT PRO B-TYPE NATRIURETIC PEPTIDE Routine 08/10/2025 8:46 AM CDT AMYLASE Routine 08/10/2025 8:46 AM CDT LIPASE Routine 08/10/2025 8:46 AM CDT PSA SCREEN Routine 10/03/2024 9:23 AM ICE HANDLER COLONOSCOPY 11/03/2023 7:54 AM ICE HANDLER HM HEPATITIS C SCREENING Routine 02/02/2017 HM DEXA SCAN Routine 2009 from Last 3 Months or Most Recently Relevant to Health Maintenance Results * ECG 12 lead (08/15/2025 6:33 AM CDT) 08/15/2025 6:33 AM CDT Narrative [facility] - 08/15/2025 11:01 AM CDT Vent Rate: 52 bpm RR Interval: 1136 msec PA Interval: 143 msec QRS Duration: 102 msec QT Interval: 420 msec QTC Interval: 401 msec P-R-T Landenberg: 36 - 19 - 54 degrees IMPRESSION: SINUS BRADYCARDIA BORDERLINE ECG Electronically Signed By: German Tellez MD us Rm Goff MD ECG ORDERABLES Final Re sult [facility] * Pro B-type natriuretic peptide (08/10/2025 8:46 AM CDT) NT-proBNP 85 <=300 pg/mL [facility] ([facility]) Comment: Interpretive Comments: A. Dyspnea in Acute Care Setting All Ages: < 300 pg/ml, acute heart failure unlikely. < 50 yrs: 300 - 450 pg/ml, further investigation warranted. > 450 pg/ml, acute heart failure likely. 50 - 74 yrs: 300 - 900 pg/ml, further investigation warranted. > 900 pg/ml, acute heart failure likely . > or = 75 yrs: 450 - 1800 pg/ml, further investigation warranted. > 1800 pg/ml, acute heart failure likely. B. Non-acute Setting < 75 yrs < 125 pg/ml, rules out heart failure. > or = 125 pg/ml, further investigation warranted. > or = 75 yrs < 450 pg/ml, rules out heart failure. > or = 450 pg/ml, further investigation warranted. - Knowledge of each individual patient's NT-proBNP range may be more useful than using similar cut-points for every patient. Please note that marked elevations in NT-proBNP levels may be observed in state other than Left Ventricular Congestive Failure, including: acute coronary syndromes, right heart strain/failure (including pulmonary embolism and cor pulmonale), critical illness, renal failure, as well as advanced age. - References: 1. Emerson KEITH et.al. Eur Heart J. 2006:27:330-337. 2. Adarsh RW, Chin LUNA. J. AM Jerman Cardiol: Cardiovasc Imag. 2009;2: 216- 225. Interpretive Data Last Revised Date: 2018. Blood 08/10/2025 8:46 AM CDT 08/10/2025 8:51 AM CDT us Jesus Lau MD LAB BLOOD ORDERABLES Final Resu lt Performing Organization Address City/[facility]/ZIP Co de Phone Number [facility] ([place]) [address] [place] [address] * Lipase (08/10/2025 8:46 AM CDT) Lipase 42 10 - 99 Units/L [facility] ([place]) Blood 08/10/2025 8:46 AM CDT 08/10/2025 8:51 AM CDT us Jesus Lau MD LAB BLOOD ORDERABLES Final Resu lt Performing Organization Address City/State/[place] Co de Phone Number [facility] ([place] [address] [place] [address] * (ABNORMAL) Amylase (08/10/2025 8:46 AM CDT) Amylase 29(L) 30 - 99 Units/L [facility] ([place]) Blood 08/10/2025 8:46 AM CDT 08/10/2025 8:51 AM CDT Jesus Lau MD LAB BLOOD ORDERABLES Final Resu lt Performing Organization Address City/[facility]/ZIP Co de Phone Number [facility] ([place]) [address] [facility] [place] [address] * (ABNORMAL) PSA screen (10/03/2024 9:23 AM ICE HANDLER) PSA-Total 20.08(H) <=6.20 ng/mL Comment: Interpretive Data [...] last revised 22. Blood 10/03/2024 9:23 AM ICE HANDLER 10/03/2024 9:43 AM ICE HANDLER us Marco A Childs MD LAB BLOOD ORDERABLES Final Result [facility] [address] [address] * COLONOSCOPY (11/03/2023 7:54 AM ICE HANDLER) Anatomical Region Laterality Modality Other Narrative Procedure Note Benita Jay MD - 11/03/2023 7:54 AM CST [facility] Patient Name: James Francois Procedure Date: 11/03/2023 7:54 AM Date of : 1955 Admit Type: Outpatient Age: 68 Gender: Male Attending MD: Benita Jay M.D. Room: [facility]COPY [facility] 2 Note Status: Finalized Patient Profile: This is a 68 year old male history of HLD, skincancer here for colon cancer screening. Last [id number] that was normal. No family history of [...] by the physician, the anesthesiologist and the recreation technician in the endoscopy suite. MentalStatus Examination: [...] under direct vision. The Pediatric Colonoscope [id number] [id number] was introducedthrough the anus and advanced to [...] 7:54 AM Procedure Code(s): --- Professional --- 82422, Colonoscopy, flexible; with removal of tumor(s), polyp(s), or other lesion(s) by snare technique --- Technical --- 89714, Colonoscopy, flexible; with removal of tumor(s), polyp(s), [...] colon K64.8, Other hemorrhoids CPT copyright 2020 [employer]. All rights reserved. The codes documented in this report are preliminary and upon bulk pigment reducer reviewmay be revised to meet current compliance requirements. Recognized by the [employer] for promoting quality in endoscopy Benita Jay MD ENDOSCOPY PROCEDURES Final Resul t * HEPATITIS C SCREENING (02/02/2017) HEP C Normal Historical [facility] Final Result * DEXA SCAN (2009) DEXA Scan Abnormal Comment:Osteopenia Historical [facility] Final Result from Last 3 Months or Most Recently Relevant to Health Maintenance Insurance MEDICARE [facility] MEDICARE COMMERCIAL GENERIC [facility] MEDICARE [facility] Advance Directives For more information, please contact: [phone] * Full Code (Latest Code Status on File) Date Activated Date Inactivated Comments 06/18/2025 5:35 PM 06/21/2025 5:46 PM * Full Code Date Activated Date Inactivated Comments 06/18/2025 2:25 PM 06/18/2025 5:35 PM * Full Code Date Activated Date Inactivated Comments 04/03/2025 3:08 PM 04/04/2025 7:07 PM * Full Code Date Activated Date Inactivated Comments 11/03/2023 8:08 AM 11/03/2023 2:38 PM * Full Code Date Activated Date Inactivated Comments 11/03/2023 8:08 AM 11/03/2023 8:08 AM Care Teams Superintendent Transportation Relationship Specialty Start Date End Date Cornell Stoll MD [address] [place] [address] PCP - General 02/18/17 [place] [address] [place] [address] [place] [address] Consulting Physician General Surgery 04/04/25
--- OUTSIDE RECORDS SUMMARY | 2025-10-11 13:02 | XMS_ITS | Encounter Summary ---
Author Organization [facility] Address [address] [place] [address] Phone Care Team Providers Care Body Shop Mechanic Name Role Phone Cornell Stoll MD Primary Care Provider + Cornell Francis MD Unavailable [phone] Encounter Details Date Type Department Care Team (Late st Contact Info) Description 06/20/[address] [facility] [address] [place] [address] [place] Parker, GERALDINE [address] [facility] [facility] [address] [place] [address] Social History Tobacco Use Types Packs/Day Years Used Date Smoking Tobacco: Never Smokeless Tobacco: Never Alcohol Use Standard Drinks/Week Comments No 0 (1 standard drink = 0.6 oz pur e alcohol) [facility] Utilities Answer Date Recorded In the past 12 months has [employer], gas, oil, or water company threatened to shut off services in your [...] often do you attend chur ch or restoration services? More than 4 times per year 06/20/2025 Do you belong to any clubs o r organizations such as alevism groups, unions, fraternal or athletic groups, or school groups? Yes 06/20/2025 How often do you attend meet ings of the clubs or organizations you belong to? More than 4 times per year 06/20/2025 Are you , , di vorced, , never , or living with a partner? 06/20/2025 AUDIT-C Answer Date Recorded Q1: How often do you have a drink containing alcohol? Never 04/03/2025 Q2: How many drinks containi ng alcohol do you have on a typical day when you are drinking? Patient does not drink Q3: How often do you have si x or more drinks on one occasion? Never 04/03/2025 Overall Financial Resource Strain (CARDIA) Answe r [...] any time in the past 12 m [facility], were you homeless or living in a snf (including now)? No 06/20/2025 Personal Safety Answer Date Recorded Have you ever been in or are you currently in a harmful physical or emotional relationship or is someone making you feel afraid or unsafe? Denies 06/18/2025 Sex and Gender Information Value Date Recorded Sex Assigned at Not on file Legal Sex Male 4:34 PM PROGRAM AIDE Gender Identity Male 10/31/2020 11:25 AM PROGRAM AIDE Sexual Orientation Straight 04/18/2020 2: 27 PM CDT documented as of this encounter Functional Status * Difference in Last Two Rogelio Scores Answer Date of Assessment Author 0 06/21/2025 8:00 AM CDT Aimee Osman RN * Phillip Fall Risk Question Answer Date of Assessment Author History of Falling 0 06/21/2025 8:00 AM DELORIST Kinga Osman RN Secondary Diagnosis 15 06/21/2025 8:00 AM Kinga Pickering RN Ambulatory Aids 15 06/21/2025 8:00 AM CDT Ly nchKinga RN Intravenous Therapy/Heparin/Saline Lock 20 06/21/2025 8:00 AM DELORIST Ab urbano Osman RN Gait/Transferring 0 06/21/2025 8:00 AM DELORIST Kinga Osman RN Mental Status 0 06/21/2025 8:00 AM CDT Lync hKinga RN Morse Fall Risk Score (Score >= 45 places fall precaution order) 50 06/21/2025 8:00 AM CDT Kinga Osman ae, RN Prior Fall Event (Autopopulated from EMR) None found 06/21/2025 8:00 AM CDT Rose Osman RN * Rogelio Scale Question Answer Date of Assessment Author Sensory Perceptions 4 06/21/2025 8:00 AM Kinga Pickering RN Moisture 4 06/21/2025 8:00 AM DELORIST Kinga Osman RN Activity 4 06/21/2025 8:00 AM DELORIST Kinga Osman RN Mobility 4 06/21/2025 8:00 AM DELORIST Kinga Osman RN Nutrition 4 06/21/2025 8:00 AM DELORIST Kinga Osman RN Friction and Shear 3 06/21/2025 8:00 AM DELORIST Kinga Osman RN Rogelio Scale Score 23 06/21/2025 8:00 AM DELORIST Kinga Osman RN * BP Location Answer Date of Assessment Author Left arm 06/21/2025 11:33 AM Yulia Hollins * MAP (mmHg) Answer Date of Assessment Author 92 06/21/2025 11:33 AM DELORIST Yulia Spencer * Question Answer Date of Assessment Author BP Method Automatic 06/21/2025 2:51 AM DELORIST Andrew Monroe * Fall Risk Interventions Question Answer Date of Assessment Author All Low Fall Interventions Applied Yes 06/21/2025 8:00 AM Kinga Dow RN All Moderate Fall Interventions Applied Yes 06/21/2025 8:00 AM Kinga Dow RN All High Fall Risk Interventions Applied Yes 06/21/2025 8:00 AM Kinga Dow RN All High Risk Interventions EXCEPT: Collaborate with family;Bed alarm 06/21/2025 8:00 AM Kinga Dow RN Additional Interventions Applied Bed/chair alarm 06/20/2025 8:00 AM Kinga Dow RN Reason For Exception(s) pt is alert to abilities and limitations able to appropriately use call light 06/21/2025 8:00 AM Kinga Dow RN * B.M.A.T. - Bedside Mobility Assessment Tool for Nurses Question Answer Date of Assessment Author Is patient able to participate in the BMAT? Yes 06/21/2025 8:00 AM Kinga Dow RN Reason patient is unable to participate in BMAT Bed rest orders 06/21/2025 8:00 AM Kinga Dow RN BMAT Level Level 3 - Yellow 06/21/2025 8:00 AM QING L Kinga quigley RN Level 3 Equipment Use assistive device such as cane/walker 06/21/2025 8:00 AM Kinga Dow RN * Question Answer Date of Assessment Author 1. Has the patient self-reported, presented with clinical signs of, or have a documented history of any of the following within the past 30 days? No 06/21/2025 8:00 AM Kinga Dow ae, RN * Question Answer Date of Assessment Author Is the patient being treated today because it is known or suspected that they prepared, started, or tried to end their life? No 06/21/2025 8:00 AM Kinga Dow ae, RN * Question Answer Date of Assessment Author 1. In the past month, have y ou wished you were or that you could go to sleep and not wake up? No 06/21/2025 8:00 AM Kinga Dow ae, RN 2. In the past month, have y ou actually had any thoughts of killing yourself? No 06/21/2025 8:00 AM Kinga Dow ae, RN 6. Have you ever done anythi ng, started to do anything, or prepared to do anything to end your life? No 06/21/2025 8:00 AM Kinga Dow ae, RN * Suicide Risk Level Answer Date of Assessment Author No risk level 06/21/2025 8:00 AM Ab urbano Dow RN * Self-Injurious Risk Level Answer Date of Assessment Author No risk level 06/21/2025 8:00 AM Ab urbano Dow RN * Pressure Injury Prevention Question Answer Date of Assessment Author Pressure Ulcer Prevention Interventions Keep skin clean and dry (Sensory Perception/Moisture ) 06/21/2025 8:00 AM Kinga Dow RN 2 Nurse Skin Assessment Teddy/Francheska 06/20/2025 8:0 0 PM DELORIST Teddy Delacruz RN Special Mattress Gel overlay 06/21/2025 8:00 AM DELORIST Kinga Fontenot RN * Integumentary Question Answer Date of Assessment Author Skin Color Appropriate for ethnicity 06/21/2025 8:00 AM Kinga Dow RN Skin Condition/Temp Warm;Dry 06/21/2025 8:00 AM Kinga Pickering RN Integumentary (WDL) WDL 06/21/2025 8:00 AM Kinga Pickering RN * Question Answer Date of Assessment Author Percent Meal Eaten (%) 75 06/21/2025 12:00 P M DELORIST Stephie Lang * BP Location Answer Date of Assessment Author Left arm 06/21/2025 11:33 AM CDT Yulia Spencer * Question Answer Date of Assessment Author BP Method Automatic 06/21/2025 2:51 AM CDT Andrew Monroe * Fall Risk Interventions Question Answer Date of Assessment Author All Low Fall Interventions Applied Yes 06/21/2025 8:00 AM DELORIST Kinga Osman RN All Moderate Fall Interventions Applied Yes 06/21/2025 8:00 AM DELORIST Kinga Osman RN All High Fall Risk Interventions Applied Yes 06/21/2025 8:00 AM DELORIST Kinga Osman RN All High Risk Interventions EXCEPT: Collaborate with family;Bed alarm 06/21/2025 8:00 AM DELORIST Kinga Osman RN Additional Interventions Applied Bed/chair alarm 06/20/2025 8:00 AM DELORIST Kinga Osman RN Reason For Exception(s) pt is alert to abilities and limitations able to appropriately use call light 06/21/2025 8:00 AM DELORIST Kinga Osman RN * Hygiene Question Answer Date of Assessment Author Hygiene Hair washed;Moisture barrier;Skin cleanser 06/20/2025 11:00 AM López Jenkins Oral Care Teeth brushed 06/20/2025 11:00 AM DELORIST López Sargent Hygiene Level of Assistance Minimal assist 06/21/2025 8:00 AM DELORIST Kinga Osman RN Reason not bathed/showered with chlorhexidine gluconate (CHG) Patient refused bath/shower with chlorhexidine gluconate (CHG) 06/21/2025 8:00 AM DELORIST Kinga Osman RN Toileting: Level of assistance Minimal 06/21/2025 6:00 AM Teddy Webber RN Reason not bathed/showered Patient/family refused bath/shower 06/20/2025 8:00 AM DELORIST Kinga Osman RN Perineal Care Ashley Care 06/20/2025 11:00 AM CDT López Sargent Linens Complete linen change 06/20/2025 11:00 AM López Jenkins Bath Not bathed/showered 06/21/2025 8 :00 AM CDT Kinga Osman RN documented as of this encounter Mental Status * Question Answer Entry Date Author Level of Consciousness Alert;Awake 12:00 PM Kinga oDw RN Orientation Oriented X4 (person, place, time, situation) 06/21/2025 12:00 PM Kinga Dow RN Neuro (WDL) X 06/21/2025 12:00 PM CDT Kinga Osman RN Other Neuro Symptoms Other (Comment) 06/21/2025 12:00 PM Kinga Dow RN documented in this encounter Plan of Treatment Not on file documented as of this encounter Visit Diagnoses Not on filedocumented in this encounter Care Teams Body Shop Mechanic Relationship Specialty Start Date End Date Cornell Stoll MD [address] [place] [address] PCP - General 02/18/17 [place] [address] [place] [address] Consulting Physician General Surgery 04/04/25 documented as of this encounter
--- OUTSIDE RECORDS SUMMARY | 2025-10-11 13:02 | XMS_ITS | Encounter Summary ---
Author Organization [facility] Health Address [address] [place] [address] Care Team Providers Care Airport Maintenance Laborer Name Role Phone Cornell Stoll MD Primary Care Provider [phone] [phone] Encounter Details Date Type Department Care Team (Late st Contact Info) Description 03/20/2019 [facility] Outpatient Visit EXTERNAL NON-[facility] DEPT Unknown, Provider Social History Tobacco Use Types Packs/Day Years Used Date Smoking Tobacco: Never Smokeless Tobacco: Never Alcohol Use Standard Drinks/Week Comments No 0 (1 standard drink = 0.6 oz pur e alcohol) Sex and Gender Information Value Date Recorded Sex Assigned at Not on file Legal Sex Male 5:25 PM PALLIATIVE CARE NURSE PRACTITIONER Gender Identity Not on file Sexual Orientation [...] on filedocumented in this encounter Care Teams Airport Maintenance Laborer Relationship Specialty Start Date End Date Cornell Stoll MD [address] [place] [address] PCP - General Internal Medicine 01/09/24 documented as of this encounter
--- OUTSIDE RECORDS SUMMARY | 2025-10-11 13:02 | XMS_ITS | Encounter Summary ---
Author Organization [facility] Address [address] [place] [address] Care Team Providers Care Station Agent Name Role Phone Cornell Stoll MD Primary Care Provider [phone] [phone] Encounter Details Date Type Department Care Team (Late st Contact Info) Description 02/25/2022 Lab Requisition [facility] [address] [facility] [place] [id number] Say Shannon MD [address] [place] [address] Social History Tobacco Use Types Packs/Day Years Used Date Smoking Tobacco: Never Smokeless Tobacco: Never Alcohol Use Standard Drinks/Week Comments No 0 (1 standard drink = 0.6 oz pur e alcohol) Sex and Gender Information Value Date Recorded Sex Assigned at Not on file 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 Jar 0. 12:55 PM CDT DERMATOPATHOLOGY LABORATORY [...] of the specimen. COMMENT: The prior biopsy ([id number]) was reviewed. An underlying process cannot be [...] characteristic determined by the Dermatopathology Laboratory at [facility], directed by Dr. Vin Terrazas. These tests need not be, and therefore are not, approved by the [place] Food and Drug Administration. The tests are used for clinical purposes. Billing Codes Specimen Charges Stain Charges 87935 1 2 12:55 PM CDT DERMATOPATHOLOGY LABORATORY Embedded Images 2 12:55 PM CDT DERMATOPATHOLOGY LABORATORY Pathology/Cytolog y TISSUE SPECIMEN FROM SKIN / Unknown 02/24/2022 02/25/2022 1:45 PM CDT Say Shannon MD LAB - PATHOLOGY/CYTOLOGY ORD ERABLES Final Result DERMATOPATHOLOGY LABORATORY [facility] - Department of Dermatology [facility] Medicine [address] [place] [address], [address] [place] [address], [facility] [phone] documented in this encounter Visit Diagnoses Not on filedocumented in this encounter Care Teams Station Agent Relationship Specialty Start Date End Date Cornell Stoll MD [address] [place] [address] PCP - General Internal Medicine 01/09/24 documented as of this encounter
--- OUTSIDE RECORDS SUMMARY | 2025-10-11 13:02 | XMS_ITS | Encounter Summary ---
Author Organization [facility] Address [address] [place] [address] Care Team Providers Care Putty Maker Name Role Phone Cornell Stoll MD Primary Care Provider [phone] [phone] Encounter Details Date Type Department Care Team (Late st Contact Info) Description 08/03/2018 Lab Requisition 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 Gender Identity Not on file Sexual Orientation Not on file documented as of this encounter Plan of Treatment Not on file documented as of this encounter Procedures Procedure Name Priority Date/Time Associated Diagnosis Comments DERMATOPATHOLOGY Routine 08/02/2018 12:0 0 AM CDT documented in this encounter Results * DERMATOPATHOLOGY (08/02/2018 12:00 AM CDT) Case Report Dermatopathology Report Case: [id number] Authorizing Provider: Say Shannon MD Collected: 08/02/2018 [...] (see microscopic description and comment) 3:33 PM [facility] DERMATOPATHOLOGY LABORATORY at 1533 CDT Clinical History A: R/O SCC. Check margins. B: R/O BCC. Check margins. 3:33 PM [facility] DERMATOPATHOLOGY LABORATORY Gross Description Specimen A: Received is one formalin filled container labeled with the patients name and designated proximal left radial extensor forearm. The specimen consists of a shave removal measuring [id number], the margin is inked green, bisected. Jar 0. Specimen B: Received is one formalin filled container labeled with the patients name and designated proximal left ulnar extensor forearm. The specimen consists of a shave removal measuring [id number], the margin is inked green, and [id number], [id number] submitted in cassette 1. Jar 0. 3:33 PM [facility] DERMATOPATHOLOGY LABORATORY Microscopic Description Specimen A. [...] type. Clinicopathologic correlation is recommended. 3:33 PM [facility] DERMATOPATHOLOGY LABORATORY Disclaimer An external and internal positive and negative controls are appropriate for the histochemical, immunohistochemical and immunofluorescence stain(s) in this case (if any), except where stated explicitly. The performance characteristics of the stain(s) cited in this report were developed and its performance characteristic determined by the Dermatopathology Laboratory at [facility]. These tests need not be, and therefore are not, approved by the [place] Food and Drug Administration. The tests are used for clinical purposes. Billing Codes Specimen Charges Stain Charges 35998 27803 1 1 8 3:33 PM CDT DERMATOPATHOLOGY LABORATORY Embedded Images 8 3:33 PM CDT DERMATOPATHOLOGY LABORATORY Pathology/Cytology TISSUE SPECIMEN FROM SKIN / Unknown 08/02/2018 08/03/2018 12:53 PM CDT Miscellaneous samples (specimen) TISSUE SPECIMEN FROM SKIN / Unknown 08/02/2018 08/03/2018 12:53 PM CDT Say Shannon MD LAB - PATHOLOGY/CYTOLOGY ORD ERABLES Final Result DERMATOPATHOLOGY LABORATORY [facility] - Department of Dermatology [address] [place] [address] 5th Floor Lab [address] [phone] documented in this encounter Visit Diagnoses Not on filedocumented in this encounter Care Teams Putty Maker Relationship Specialty Start Date End Date Cornell Stoll MD [address] [place] [address] PCP - General Internal Medicine 01/09/24 documented as of this encounter
--- OUTSIDE RECORDS SUMMARY | 2025-10-11 13:02 | XMS_ITS | Encounter Summary ---
Author Organization [facility] Address [address] [facility] [place] [address] Care Team Providers Care Set Up And Lay Out Inspector Name Role Phone Cornell Stoll MD Primary Care Provider [phone] [phone] Encounter Details Date Type Department Care Team (Late st Contact Info) Description 09/10/2020 Lab Requisition [facility] [address] [facility] [place] [address] Say Shannon MD [address] [place] [address] Social History Tobacco Use Types Packs/Day Years Used Date Smoking Tobacco: Never Smokeless Tobacco: Never Alcohol Use Standard Drinks/Week Comments No 0 (1 standard drink = 0.6 oz pur e alcohol) Sex and Gender Information Value Date Recorded Sex Assigned at Not on file 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 The margin is inked green. Jar 0. [...] characteristic determined by the Dermatopathology Laboratory at [facility], directed by Dr. Vin Terrazas. These tests need not be, and therefore are not, approved by the [place] Food and Drug Administration. The tests are used for clinical purposes. Billing Codes Specimen Charges Stain Charges 83965 1 0 1:48 PM CDT DERMATOPATHOLOGY LABORATORY Embedded Images 0 1:48 PM CDT DERMATOPATHOLOGY LABORATORY Pathology/Cytolog y TISSUE SPECIMEN FROM SKIN / Unknown 09/09/2020 09/10/2020 11:25 AM CDT Say Shannon MD LAB - PATHOLOGY/CYTOLOGY ORD ERABLES Final Result DERMATOPATHOLOGY LABORATORY [facility] - Department of Dermatology [facility] [address] [place] [address], [address]rd [address] [phone] documented in this encounter Visit Diagnoses Not on filedocumented in this encounter Care Teams Set Up And Lay Out Inspector Relationship Specialty Start Date End Date Cornell Stoll MD [address] [place] [address] PCP - General Internal Medicine 01/09/24 documented as of this encounter
--- OUTSIDE RECORDS SUMMARY | 2025-10-11 13:02 | XMS_ITS | Encounter Summary ---
Author Organization [facility] Address [address] [place] [address] Care Team Providers Care Pharmacology Associate Name Role Phone Cornell Stoll MD Primary Care Provider [phone] [phone] Encounter Details Date Type Department Care Team (Late st Contact Info) Description 01/11/2019 Lab Requisition [facility] [address] [facility] [place] [address] Say Shannon MD [address] [place] [address] Social History Tobacco Use Types Packs/Day Years Used Date Smoking Tobacco: Never Smokeless Tobacco: Never Alcohol Use Standard Drinks/Week Comments No 0 (1 standard drink = 0.6 oz pur e alcohol) Sex and Gender Information Value Date Recorded Sex Assigned at Not on file 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 SKIN, above left elbow laterally: SQUAMOUS CELL CARCINOMA IN SITU; PRESENT AT THE BASE OF THE SPECIMEN (D04.62) (see microscopic description and comment) 9 3:47 PM [facility] DERMATOPATHOLOGY LABORATORY at [address] [facility] Clinical History R/O SCC. Check margins. 9 3:47 PM [facility] DERMATOPATHOLOGY LABORATORY Gross Description Specimen A: Received is one formalin filled container labeled with the patients name and designated above left elbow laterally. The specimen consists of a shave removal measuring 1m8x8cy, the margin is inked green. Jar 0. 9 3:47 PM [facility] DERMATOPATHOLOGY LABORATORY Microscopic Description Specimen A. SKIN, above left elbow laterally: The epidermis shows parakeratosis and an endophytic lesion with full thickness disorderly maturation of keratinocytes, mitoses at different levels, and dyskeratotic cells. The lesion extends to the base of the biopsy. COMMENT: An invasive squamous cell carcinoma cannot be ruled out. 9 3:47 PM ELECTRONIC NEWS GATHERING CAMERA PERSON DERMATOPATHOLOGY LABORATORY Disclaimer An external and internal positive and negative controls are appropriate for the histochemical, immunohistochemical and immunofluorescence stain(s) in this case (if any), except where stated explicitly. The performance characteristics of the stain(s) cited in this report were developed and its performance characteristic determined by the Dermatopathology Laboratory at [facility], directed by Dr. Vin Terrazas. These tests need not be, and therefore are not, approved by the [place] Food and Drug Administration. The tests are used for clinical purposes. Billing Codes Specimen Charges Stain Charges 58531 1 9 3:47 PM ELECTRONIC NEWS GATHERING CAMERA PERSON DERMATOPATHOLOGY LABORATORY Embedded Images 9 3:47 PM ELECTRONIC NEWS GATHERING CAMERA PERSON DERMATOPATHOLOGY LABORATORY Pathology/Cytolog y TISSUE SPECIMEN FROM SKIN / Unknown 01/10/2019 01/11/2019 12:00 PM ELECTRONIC NEWS GATHERING CAMERA PERSON Say Shannon MD LAB - PATHOLOGY/CYTOLOGY ORD ERABLES Final Result Performing Organization Address City/State/[facility] Co de Phone Number DERMATOPATHOLOGY LABORATORY [facility] - Department of Dermatology [address] [place] [address], 5th Floor Lab [address] [phone] documented in this encounter Visit Diagnoses Not on filedocumented in this encounter Care Teams Pharmacology Associate Relationship Specialty Start Date End Date Cornell Stoll MD [address] [place] [address] PCP - General Internal Medicine 01/09/24 documented as of this encounter
== END 2025-10-11 12:59 | disposition home or self-care (01) ==
PROVIDERS: PCP Internal Medicine; Visit Provider Urology
DX: C61 Malignant neoplasm of prostate (principal); Z90.79 Acquired absence of other genital organ(s)
CPT/HCPCS: 78815; A9596